=== PATIENT | female | born 1940 | race Caucasian/White ===

== ENCOUNTER 2019-07-13 12:15 | Inpatient (IN) ==
[2019-07-13] MEDS ORDERED: ASPIRIN CHEW 324 MG PO STA (12:30)
[2019-07-13] MEDS ORDERED: NITROGLYCERIN SL 0.4 MG/TAB TAB SL PRN (12:30)
[2019-07-13] MEDS ORDERED: ONDANSETRON INJ 2 MG/ML 2 ML VIAL IV STA (12:30)
[2019-07-13] MEDS ORDERED: ASPIRIN CHEW 324 MG ONE (12:34)
[2019-07-13] MEDS ORDERED: NITROGLYCERIN SL 0.4 MG/TAB TAB ONE (12:34)
[2019-07-13] MEDS ORDERED: ONDANSETRON INJ 2 MG/ML 2 ML VIAL ONE (12:34)
[2019-07-13] MEDS ORDERED: fentaNYL citrate 100 MCG/2 ML VIAL IV PRN (12:37)
[2019-07-13] MEDS ORDERED: SODIUM CHLORIDE 0.9% 1000ML 1,000 ML IV STA (12:41)
[2019-07-13] MEDS ORDERED: HEPARIN (PORCINE) 1000 UNIT/ML 10 ML (CATH LAB USE ONLY) ONE (12:43)
[2019-07-13] MEDS ORDERED: NITROGLYCERIN/D5W 100MCG/ML 20ML SYR ONE (12:44)
[2019-07-13] MEDS ORDERED: NiCARDipine HCL INJ 2.5 MG/ML 10 ML AMP ONE (12:44)
[2019-07-13] MEDS ORDERED: fentaNYL citrate 100 MCG/2 ML VIAL ONE (12:44)
[2019-07-13] MEDS ORDERED: MIDAZOLAM HCL 1 MG/ML 2ML VIAL ONE (12:44)
--- NOTE | 2019-07-13 12:53 | XRay Report ---
XR chest 1V portable CLINICAL HISTORY: Chest Pain COMPARISON STUDY: No previous studies for comparison. FINDINGS: Lung volumes are normal. Lungs are clear. There is no pneumothorax or pleural effusion. Car diac size is normal. Mediastinal contours are normal. There is no evidence for pulmonary edema. IMPRESSION: No acute cardiopulmonary findings. Electronically signed by: Rick Rainey M.D. 07/13/2019 12:52 PM
[2019-07-13 12:54] LABS: Hemoglobin 14.8 g/dL (12.0-16.0); Mean Corpuscular Hemoglobin 30.5 pg (25-34); Mean Corpuscular Hgb Conc 34.4 g/dL (32-36); Mean Corpuscular Volume 88.5 fL (80-100); Mean Platelet Volume 10.5 fL (7.4-10.4); Platelet Count 207 K/uL (130-400); RDW Coefficient of Variation 14.3 % (11.5-14.5); RDW Standard Deviation 46.8 fL (36.4-46.3); Red Blood Count 4.86 M/uL (4.2-5.4); White Blood Count 10.85 K/uL (4.8-10.8)
[2019-07-13 12:54] LABS: iSTAT Creatinine 1.3 mg/dl (0.6-1.3); iSTAT Hemoglobin 15.3 g/dl (12.0-16.0); iSTAT Ionized Calcium 1.11 mmol/l (1.12-1.32); iSTAT Potassium 4.3 mEq/L (3.3-5.0)
[2019-07-13] MEDS ORDERED: OPTIRAY 320 125ml IV PRN (12:54)
[2019-07-13 13:09] LABS: Partial Thromboplastin Ratio 0.9; Partial Thromboplastin Time 25.1 Seconds (21.0-31.0); Prothrombin Time 9.8 Seconds (9.0-12.0)
[2019-07-13 13:17] LABS: Albumin Level 3.9 gm/dl (3.4-5.0); Calcium 9.7 mg/dl (8.5-10.1); Creatinine Clr Calc Pharmacy 35.9 ml/min; Est GFR (African American) 40.8; Est GFR (Non-African American) 35.2; Potassium 3.5 mmol/L (3.5-5.1)
--- NOTE | 2019-07-13 13:18 | CT Scan Report ---
CT ANGIOGRAPHY OF THE CHEST DISSECTION PROTOCOL CLINICAL HISTORY: severe back pain, AMI on ecg COMPARISON STUDY: Chest radiograph July 13, 2019. TECHNIQUE: Before and following the IV administration of 120 mL of Optiray-320, helical axial images of the chest were obtained. Maximal intensity projections and sagittal and coronal reformats were vi ewed on an independent 3D workstation. IV contrast was administered without complication. Automated exposure control was utilized for the study. A dose lowering technique was utilized adhering to the principles of ALARA. CT DOSE: 1165.84 mGy.cm FINDINGS: The caliber of the thoracic aorta is normal. There is irregular ulcerated plaque along the lateral aspect of the aortic arch. There is no thoracic aortic dissection or intramural hematoma. Th e heart is mildly enlarged. Multiple coronary artery stents are noted. There is extensive vascular ca lcification. No pneumothorax or pleural effusion is noted. There is no consolidation. Central airways are patent. No pulmonary emboli identified. Bony thorax is unremarkable. A cyst within the upper kathia e of the left kidney is partially imaged. There are suspected left renal calculi, including a suspect ed large calculus shown on the driver license reviewing officer image. IMPRESSION: 1. No thoracic aortic dissection. No pulmonary emboli. 2. Irregular ulcerated atherosclerotic plaque of the aortic arch. 3. Cardiomegaly. Extensive coronary artery calcification. 4. Left-sided nephrolithiasis. Electronically signed by: Rick Rainey M.D. 07/13/2019 1:16 PM
[2019-07-13] MEDS ORDERED: CLOPIDOGREL BISULFATE 300 MG TAB PO STA (13:21)
[2019-07-13] MEDS ORDERED: HEPARIN SODIUM/DEXTROSE 25,000 UNITS/500 ML BAG IV SCH (13:30)
[2019-07-13 13:33] LABS: ALC (manual) 7.49 K/uL (1.2-3.4); Basophils % (manual) 0.9 %; Large Granular Lymph # (manua 5.76 K/uL; Large Granular Lymph % (manual) 53.1 %; Lymphocytes # (manual) 1.73 K/uL (1.2-3.4); Lymphocytes % (manual) 15.9 %; Monocytes # (manual) 0.77 K/uL (0.11-0.59); Monocytes % (manual) 7.1 %; RBC Morphology Unremarkable
[2019-07-13] MEDS ORDERED: ADENOSINE IV SOLN 3 MG/ML 2 ML VIAL IV ONE ×3 (13:42→14:03)
[2019-07-13 13:43] LABS: Albumin Globulin Ratio 0.8 (0.9-2); Bilirubin,Total 0.6 mg/dl (0.2-1); Globulin 4.7 gm/dl (2.5-4.0); Total Protein 8.6 gm/dl (6.4-8.2); Troponin I 0.097 ng/ml (0-0.045)
[2019-07-13] MEDS ORDERED: ATROPINE SULFATE 0.1 MG/ML 10ML SYR IV ONE (14:06)
[2019-07-13] MEDS ORDERED: MoRPHine SULFATE 2 MG/ML CARP IV PRN ×2 (14:21→15:09)
[2019-07-13] MEDS ORDERED: HydrALAZINE HCL 20 MG/ML VIAL ONE (14:31)
--- NOTE | 2019-07-13 14:34 | Cardiac Catheterization ---
Cardiac Cath Procedure Full Procedure Date July 13, 2019 Pre-Procedure Diagnosis Pre-Procedure Diagnosis: STEMI AUC Score AUC Score: 10 Post-Procedure Diagnosis Post-Procedure Diagnosis: Successful PCI Procedure(s) Performed Procedure(s) Performed: Coronary Angiography, PTCA and Drug Eluting Stent Pantograph Machine Set Up Operator Codie Barton Estimated Blood Loss Estimated Blood Loss: None Medication(s) Medication(s): Adenosine, Aspirin, Clopidogrel, Fentanyl, Heparin, Lidocaine 1% and Versed Summary of Findings 90% Ostial RCA 100% Distal RCA 70% Mid LAD 90% non-dominate circ POBA of RCA. 4.0 x 12mm ELLE to Ostial LAD Hemodynamics Rest Ao:: 220/78 Final Ao: 187/79 LV: ND Recommendations Recommendations: PCI without planned CABG Specimens Specimens: None Radiation Exposure (mGy) 2981 Contrast (mls) 210 Procedural Complication(s) None Disposition ICU I attest to the content of the Intraoperative Record and any orders documented therein. Any exceptions are noted below. 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
--- NOTE | 2019-07-13 14:40 | History & Physical Report ---
Date of Service July 13, 2019 Assessment & Plan (1) Acute ST elevation myocardial infarction (STEMI): 1. 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 Involved coronary artery: unspecified coronary artery Qualified Code(s): I21.3 - ST elevation (STEMI) myocardial infarction of unspecified site Present on Admission?: Yes History of Present Illness Chief Complaint: STEMI Primary Care Provider: NO PCP Allergies Allergy/AdvReac Type Severity Reaction Status Date / Time Penicillins Allergy Hives Unverified 07/13/19 13:08 codeine AdvReac Gastrointestinal Unverified 07/13/19 13:08 Upset prednisone AdvReac Unknown Unverified 07/13/19 13:08 Home Medications Home Medications Medication Instructions Recorded Confirmed Type clopidogrel 75 mg PO DAILY 07/13/19 07/13/19 History insulin glargine [Lantus Solostar 50 unit SUBCUT QAM 07/13/19 07/13/19 History U-100 Insulin] insulin lispro [Humalog KwikPen 1 unit SUBCUT TIDM 07/13/19 07/13/19 History Insulin] levothyroxine 175 mcg PO DAILY 07/13/19 07/13/19 History losartan 50 mg PO DAILY 07/13/19 07/13/19 History metoprolol tartrate 25 mg PO DAILY 07/13/19 07/13/19 History omeprazole 20 mg PO DAILY 07/13/19 07/13/19 History rosuvastatin 5 mg PO DAILY 07/13/19 07/13/19 History Past Med/Surg History Medical History CAD (coronary artery disease) Diabetes Hypertension MS (multiple sclerosis) Surgical History History of coronary artery stent placement Family History Other Family history non-contributory Social History Preferred Language: Malian Feels Safe at Home: Yes Review of Systems All systems reviewed & are unremarkable except as noted in HPI & below Physical Exam Constitutional: WD/WN, vitals as above Respiratory: normal respiratory effort, lungs clear to auscultation Cardiovascular: RRR, no murmur, no edema ASA Classification ASA ASA3 Results & Data Vital Signs (Past 12 Hours) Vital Signs Temp Pulse Resp BP Pulse Ox 07/13/19 13:10 79 18 100 07/13/19 13:07 74 18 212/102 H 07/13/19 13:02 79 20 100 07/13/19 12:44 20 179/100 H 100 07/13/19 12:40 21 100 07/13/19 12:32 217/115 H 100 07/13/19 12:31 99 07/13/19 12:30 100 07/13/19 12:29 76 21 234/103 H 99 07/13/19 12:27 78 19 98 07/13/19 12:22 100 07/13/19 12:21 36.7 C 125 H 28 H 100 Code Status & VTE Plan VTE Prophylaxis Plan VTE Prophylaxis will be ordered: Yes
[2019-07-13] MEDS ORDERED: GLUCOSE 40% GEL 15 GM TUBE PO PRN (15:15)
[2019-07-13] MEDS ORDERED: CARBOHYDRATES FOR HYPOGLYCEMIA PO PRN (15:15)
[2019-07-13] MEDS ORDERED: LACTATED RINGER'S 1,000 ML IV SCH (15:15)
[2019-07-13] MEDS ORDERED: DEXTROSE 50% 50 ML SYRINGE IV PRN (15:15)
[2019-07-13] MEDS ORDERED: GLUCAGON FOR INJ 1 MG VIAL IM PRN (15:15)
[2019-07-13] MEDS ORDERED: GLUCOSE 10 TABS/TUBE PO PRN (15:15)
--- NOTE | 2019-07-13 15:16 | Critical Care Consultation ---
Date of Consultation July 13, 2019 Assessment & Plan (1) Admitted to intensive care unit: Reason Critically Ill: 78-year-old female here for s/ppci with nyla for STEMI. Past medical history significant for Coronary artery disease, diabetes, hypertension, multiple sclerosis Neuro: -CAM ICU: NEGATIVE -Notify provider of cp Cardiac: Stemi Status post cardiac catheterization with findings of 90% ostial RCA occlusion, 100% distal RCA occlusion, 70% mid LAD occlusion, 90% nondominant circumflex occlusion. A drug-eluting stent was placed to the ostial left anterior descending. Patient is hypertensive in the postoperative period -Cardiology consulted following recommendations -Routine post cath care -On dual antiplatelet therapy with aspirin and clopidogrel, on losartan 50 mg daily, metoprolol 25 mg daily, and 5 mg rosuvastatin daily Respiratory: -Saturating 98% on room air GI: -Heart healthy diet RENAL/LYTES: -No significant electrolyte derangement. -Replace lytes as needed. SUSANNAH CR 1.44 -Gentle fluid hydration with lactated Ringer's @125 : - No concerns at this time. ENDO: DMII -glycemic cx placed HEME: - Stable H&H. ID: - No concerns for infection at this point. -Monitor fever curve. LINES/IV ACCESS: -PIVs intact. DVT PROPHYLAXIS: -Received intraoperative heparin and loaded with antiplatelets -Initiate DVT prophylaxis tomorrow Dispo: ICU Thank you for allowing us to be part of this patient's care. Please refer to Dr. Perea's documentation for any further recommendations. (2) Acute ST elevation myocardial infarction (STEMI): (3) History of coronary artery stent placement: (4) HTN (hypertension): (5) MS (multiple sclerosis): History of Present Illness Attending Physician: Codie Barton History of Present Illness Patient is visiting [place] but resides in [facility]. Patient follows with Dr. 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 Best, records are pending. Patient is a 78-year-old female with a past medical history significant for hx of prior mi,multiple sclerosis, diabetes, coronary artery disease, and hypertension. who presented to the emergency department today with complaints of chest pain and chest pressure. A code heart alert was called and the patient was taken to the Assistant Sales Manager see assessment and plan for findings. A drug-eluting stent was placed and the patient was transferred to the ICU for further evaluation management. On arrival to the ICU the patient was sedated although responsive and able to interact with staff. Acute concerns are present related to hypertension all questions answered. Allergies Allergy/AdvReac Type Severity Reaction Status Date / Time Penicillins Allergy Hives Unverified 07/13/19 13:08 codeine AdvReac Gastrointestinal Unverified 07/13/19 13:08 Upset prednisone AdvReac Unknown Unverified 07/13/19 13:08 Home Medications Home Medications Medication Instructions Recorded Confirmed Type clopidogrel 75 mg PO DAILY 07/13/19 07/13/19 History insulin glargine [Lantus Solostar 50 unit SUBCUT QAM 07/13/19 07/13/19 History U-100 Insulin] insulin lispro [Humalog KwikPen 1 unit SUBCUT TIDM 07/13/19 07/13/19 History Insulin] levothyroxine 175 mcg PO DAILY 07/13/19 07/13/19 History losartan 50 mg PO DAILY 07/13/19 07/13/19 History metoprolol tartrate 25 mg PO DAILY 07/13/19 07/13/19 History omeprazole 20 mg PO DAILY 07/13/19 07/13/19 History rosuvastatin 5 mg PO DAILY 07/13/19 07/13/19 History Patient History Medical History (Updated 07/13/19 @ 16:34 by Ericka Quiñonez PA-C) CAD (coronary artery disease) Diabetes Diabetes mellitus, type II GERD (gastroesophageal reflux disease) Hypertension MS (multiple sclerosis) Surgical History History of coronary artery stent placement History of hysterectomy S/P appendectomy S/P cholecystectomy Family History (Updated 07/13/19 @ 16:30 by Ericka Quiñonez PA-C) Other Heart disease Social History Preferred Language: Armenian Communication Ability: Effective Communication Ability Comment: currently sleeping after cardiac catheterization Vice President Of Talent Acquisition Required: No Beliefs That Will Affect Care: None Current Living Situation: Spouse Other Information That Helps Us Care for You: No Feels Safe at Home: Yes Safety Concerns: Feels Safe At This Time Smoking Status: Never smoker Do You Dip or Chew Tobacco: No ; Second Hand Exposure: No ; Tobacco Cessation Education Requested by Patient: No Hx Alcohol Use: No Hx Substance Use: No Physical Exam Physical Exam: General: Sedated female no acute distress HEENT: Normocephalic atraumatic Neck: Normal to visual inspection Cardiac: Regular rate and rhythm, I did not appreciate any significant murmurs rubs or gallops, normal S1 normal S2, negative significant pedal edema Respiratory: Clear to auscultation bilaterally without significant wheezes, rales, rhonchi GI: Soft, nontender, nondistended MSK: Moves extremities Skin: No concerns Neuro: Sedated Psych: Sedated Results & Data Vital Signs (Past 12 Hours) Vital Signs Temp Pulse Resp BP Pulse Ox 07/13/19 13:10 79 18 100 07/13/19 13:07 74 18 212/102 H 07/13/19 13:02 79 20 100 07/13/19 12:44 20 179/100 H 100 07/13/19 12:40 21 100 07/13/19 12:32 217/115 H 100 07/13/19 12:31 99 07/13/19 12:30 100 07/13/19 12:29 76 21 234/103 H 99 07/13/19 12:27 78 19 98 07/13/19 12:22 100 07/13/19 12:21 36.7 C 125 H 28 H 100 Laboratory Results 07/13/19 07/13/19 07/13/19 Range/Units 12:38 12:34 12:34 WBC (4.8-10.8) K/uL RBC (4.2-5.4) M/uL Hgb (12.0-16.0) g/dL POC Hgb 15.3 (12.0-16.0) g/dl Hct (37-47) % POC Hct 45 (37-47) % MCV (80-100) fL MCH (25-34) pg MCHC (32-36) g/dL RDW Std Deviation (36.4-46.3) fL RDW Coeff of Cindy (11.5-14.5) % Plt Count (130-400) K/uL MPV (7.4-10.4) fL Neutrophils % (Manual) % Lymphocytes % (Manual) % Monocytes % (Manual) % Basophils % (Manual) % Neutrophils # (Manual) (1.4-6.5) K/uL Total Absolute Neuts (1.4-6.5) K/uL Lymphocytes # (Manual) (1.2-3.4) K/uL Total Abs Lymphocytes (1.2-3.4) K/uL Monocytes # (Manual) (0.11-0.59) K/uL Basophils # (Manual) (0-0.2) K/uL Large Granular Lymphs % # Lrg Granular Lymphs K/uL Blood Smear Review RBC Morphology PT 9.8 (9.0-12.0) Seconds INR 1.0 (0.9-1.1) APTT 25.1 (21.0-31.0) Seconds PTT Ratio 0.9 POC Sodium 142 (135-144) mEq/L Sodium 140 (136-145) mmol/L POC Potassium 4.3 (3.3-5.0) mEq/L Potassium 3.5 (3.5-5.1) mmol/L POC Chloride 110 (101-112) mEq/L Chloride 108 H (98-107) mmol/L Carbon Dioxide 25 (21-32) mmol/L POC Total CO2 23 L (24-31) mEq/l Anion Gap 7.0 (3-11) POC Anion Gap 14.0 L (16-25) mmol/L POC BUN 35 H (7-18) mg/dl BUN 30 H (7-18) mg/dl Creatinine 1.44 H (0.6-1.2) mg/dl POC Creatinine 1.3 (0.6-1.3) mg/dl Est Cr Clr Drug Dosing 35.9 ml/min Est GFR ( Amer) 40.8 Est GFR (Non-Af Amer) 35.2 BUN/Creatinine Ratio 21.0 H (10-20) Glucose 118 H (70-99) mg/dl POC Glucose (other) 115 H (70-99) mg/dl Calcium 9.7 (8.5-10.1) mg/dl POC Ioniz Calcium Sharon 1.11 L (1.12-1.32) mmol/l Total Bilirubin 0.6 (0.2-1) mg/dl AST 25 (15-37) U/L ALT 28 (12-78) U/L Alkaline Phosphatase 100 (45-117) U/L Troponin I 0.097 H* (0-0.045) ng/ml Total Protein 8.6 H (6.4-8.2) gm/dl Albumin 3.9 (3.4-5.0) gm/dl Globulin 4.7 H (2.5-4.0) gm/dl Albumin/Globulin Ratio 0.8 L (0.9-2) Lipase 158 (73-393) U/L 07/13/19 Range/Units 12:34 WBC 10.85 H (4.8-10.8) K/uL RBC 4.86 (4.2-5.4) M/uL Hgb 14.8 (12.0-16.0) g/dL POC Hgb (12.0-16.0) g/dl Hct 43.0 (37-47) % POC Hct (37-47) % MCV 88.5 (80-100) fL MCH 30.5 (25-34) pg MCHC 34.4 (32-36) g/dL RDW Std Deviation 46.8 H (36.4-46.3) fL RDW Coeff of Cindy 14.3 (11.5-14.5) % Plt Count 207 (130-400) K/uL MPV 10.5 H (7.4-10.4) fL Neutrophils % (Manual) 23.0 % Lymphocytes % (Manual) 15.9 % Monocytes % (Manual) 7.1 % Basophils % (Manual) 0.9 % Neutrophils # (Manual) 2.50 (1.4-6.5) K/uL Total Absolute Neuts 2.50 (1.4-6.5) K/uL Lymphocytes # (Manual) 1.73 (1.2-3.4) K/uL Total Abs Lymphocytes 7.49 H (1.2-3.4) K/uL Monocytes # (Manual) 0.77 H (0.11-0.59) K/uL Basophils # (Manual) 0.10 (0-0.2) K/uL Large Granular Lymphs 53.1 % # Lrg Granular Lymphs 5.76 K/uL Blood Smear Review Pending RBC Morphology Unremarkable PT (9.0-12.0) Seconds INR (0.9-1.1) APTT (21.0-31.0) Seconds PTT Ratio POC Sodium (135-144) mEq/L Sodium (136-145) mmol/L POC Potassium (3.3-5.0) mEq/L Potassium (3.5-5.1) mmol/L POC Chloride (101-112) mEq/L Chloride (98-107) mmol/L Carbon Dioxide (21-32) mmol/L POC Total CO2 (24-31) mEq/l Anion Gap (3-11) POC Anion Gap (16-25) mmol/L POC BUN (7-18) mg/dl BUN (7-18) mg/dl Creatinine (0.6-1.2) mg/dl POC Creatinine (0.6-1.3) mg/dl Est Cr Clr Drug Dosing ml/min Est GFR ( Amer) Est GFR (Non-Af Amer) BUN/Creatinine Ratio (10-20) Glucose (70-99) mg/dl POC Glucose (other) (70-99) mg/dl Calcium (8.5-10.1) mg/dl POC Ioniz Calcium Sharon (1.12-1.32) mmol/l Total Bilirubin (0.2-1) mg/dl AST (15-37) U/L ALT (12-78) U/L Alkaline Phosphatase (45-117) U/L Troponin I (0-0.045) ng/ml Total Protein (6.4-8.2) gm/dl Albumin (3.4-5.0) gm/dl Globulin (2.5-4.0) gm/dl Albumin/Globulin Ratio (0.9-2) Lipase (73-393) U/L Medications Administered Current Inpatient Medications Aspirin (Ecotrin) 325 mg PO QAM [facility] Stop: 08/13/19 08:59 Clopidogrel Bisulfate (Plavix) 75 mg PO QAM [facility] Stop: 08/13/19 08:59 Clopidogrel Bisulfate (Plavix) 75 mg PO DAILY [facility] Stop: 08/13/19 08:59 Fentanyl Citrate (Fentanyl Citrate) 50 mcg IV Q15M PRN PRN Reason: Pain Stop: 07/27/19 12:36 Last Admin: 07/13/19 12:41 Dose: 50 mcg Documented by: Sodium Chloride (Nss 1000ml) 1,000 mls @ 125 mls/hr IV .Q8H STA Stop: 07/13/19 20:40 Last Admin: 07/13/19 12:40 Dose: 125 mls/hr Documented by: Heparin Sodium/Dextrose (Heparin Sodium/Dextrose) 25,000 units in 500 mls @ 0.02 mls/hr IV .Q24H [facility]; Protocol Stop: 08/12/19 13:29 Insulin Glargine (Lantus Solostar Pen) 50 units SQ QAM JACKIE Stop: 08/13/19 08:59 Ioversol (Optiray 320 125ml) 120 ml IV ONCE PRN PRN Reason: Interaction Checking Stop: 07/17/19 12:53 Last Admin: 07/13/19 12:54 Dose: 120 ml Documented by: Levothyroxine Sodium (Synthroid) 175 mcg PO DAILY [facility] Stop: 08/13/19 08:59 Losartan Potassium (Cozaar) 50 mg PO DAILY [facility] Stop: 08/13/19 08:59 Metoprolol Tartrate (Lopressor) 25 mg PO DAILY [facility] Stop: 08/13/19 08:59 Morphine Sulfate (Morphine Sulfate) 1 mg IV Q5M PRN PRN Reason: moderate to severe pain Stop: 07/27/19 14:20 Nitroglycerin (Nitrostat) 0.4 mg SL UD PRN PRN Reason: Chest Pain Stop: 08/12/19 12:29 Last Admin: 07/13/19 13:07 Dose: 0.4 mg Documented by: Non-Formulary Medication (Insulin Lispro [Humalog Kwikpen Insulin]) 1 units SQ TIDM [facility] Stop: 08/12/19 16:59 Non-Formulary Medication (Omeprazole) 20 mg PO DAILY [facility] Stop: 08/13/19 08:59 Rosuvastatin Calcium (Crestor) 5 mg PO DAILY [facility] Stop: 08/13/19 08:59 Resident Activity Tracking Resident Involvement: Resident Care Provided Care Provided: Adult Hospital Medicine (ICU) (1) Acute ST elevation myocardial infarction (STEMI) Involved coronary artery: unspecified coronary artery Qualified Code(s): I21.3 - ST elevation (STEMI) myocardial infarction of unspecified site
[2019-07-13] MEDS ORDERED: PHARMACY GLYCEMIC MGMT CONSULT PRN (15:27)
--- NOTE | 2019-07-13 15:55 | History & Physical Report ---
Date of Service July 13, 2019 Assessment & Plan (1) Acute ST elevation myocardial infarction (STEMI): (2) History of coronary artery stent placement: This is a 78-year-old female with a PMH of coronary artery disease, HTN, HLD, GERD, history of Chavez's esophagus and stable MS who presented to ED this morning with a STEMI and is s/p ELLE. -Found to have STEMI in ED, underwent cardiac cath with ELLE to ostial LAD by Dr. Barton -History of CAD with cardiac cath in the past (requested records). Follows with Dr. Best of [facility] -Plavix and aspirin ordered. Continue home Lopressor and statin -Routine cardiology consult placed -Mgmt per ICU (3) HTN (hypertension): Elevated post-operatively, now improved to 162/80 -Continue home losartan, lopressor (4) Diabetes mellitus, type II: -Hold home agents -Basal/bolus insulin while in patient per protocol -Glycemic consult placed -BSG AC HS (5) MS (multiple sclerosis): Stable, not on medication (6) GERD (gastroesophageal reflux disease): Continue PPI DVT ppx: Received intraoperative heparin and loaded with antiplatelets. Initiate DVT prophylaxis tomorrow, per ICU Code status: FULL per discussion with family. Need to clarify with patient more arousable PCP: Gianluca Dispo: Admitted to ICU. Discharge planning ordered. Patient seen in collaboration with Dr. Christensen. Please see addendum. History of Present Illness Chief Complaint: Chest pain Primary Care Provider: NO PCP This is a 78-year-old female with a PMH of coronary artery disease, HTN, HLD, GERD, history of Chavez's esophagus and stable MS who presented to ED this morning with chest pain. Patient is visiting [place] but resides in [place], [place]. Upon arrival to ED, a heart alert was called and the patient was taken to the Flight/Transport Nurse. A drug-eluting stent was placed to ostial LAD and patient was transferred to the ICU for further management. Post catheterization, patient is feeling nauseated and had 1 bout of emesis. History primarily obtained from family at bedside. Patient follows with Dr. Hough of [facility] as well as optical lathe operator Dr. Best. Has history of a cardiac catheterization in the past but family does not know any more information about it. Records have been requested. Takes Plavix every day but does not take aspirin due to history of Chavez's esophagus. Family history of CAD in patient's mom. Endorses nausea and vomiting. No chest pain or SOB. Unable to obtain full ROS due to somnolence post-procedure. Allergies Allergy/AdvReac Type Severity Reaction Status Date / Time Penicillins Allergy Hives Unverified 07/13/19 13:08 codeine AdvReac Gastrointestinal Unverified 07/13/19 13:08 Upset prednisone AdvReac Unknown Unverified 07/13/19 13:08 Home Medications Home Medications Medication Instructions Recorded Confirmed Type clopidogrel 75 mg PO DAILY 07/13/19 07/13/19 History insulin glargine [Lantus Solostar 50 unit SUBCUT QAM 07/13/19 07/13/19 History U-100 Insulin] insulin lispro [Humalog KwikPen 1 unit SUBCUT TIDM 07/13/19 07/13/19 History Insulin] levothyroxine 175 mcg PO DAILY 07/13/19 07/13/19 History losartan 50 mg PO DAILY 07/13/19 07/13/19 History metoprolol tartrate 25 mg PO DAILY 07/13/19 07/13/19 History omeprazole 20 mg PO DAILY 07/13/19 07/13/19 History rosuvastatin 5 mg PO DAILY 07/13/19 07/13/19 History Past Med/Surg History Medical History (Updated 07/13/19 @ 16:34 by Ericka Quiñonez PA-C) CAD (coronary artery disease) Diabetes Diabetes mellitus, type II GERD (gastroesophageal reflux disease) Hypertension MS (multiple sclerosis) Surgical History History of coronary artery stent placement History of hysterectomy S/P appendectomy S/P cholecystectomy Family History (Updated 07/13/19 @ 16:30 by Ericka Quiñonez PA-C) Other Heart disease Social History Preferred Language: Ukrainian Communication Ability: Effective Communication Ability Comment: currently sleeping after cardiac catheterization [employer] Required: No Beliefs That Will Affect Care: None Current Living Situation: Spouse Other Information That Helps Us Care for You: No Feels Safe at Home: Yes Safety Concerns: Feels Safe At This Time Smoking Status: Never smoker Do You Dip or Chew Tobacco: No ; Second Hand Exposure: No ; Tobacco Cessation Education Requested by Patient: No Hx Alcohol Use: No Hx Substance Use: No Review of Systems Review of Systems: At least ten systems reviewed and negative except as noted in the HPI. Physical Exam Physical Exam: General Appearance: WD/WN, vitals as above, NAD, lying in bed, somnolent but responsive Head: normocephalic, atraumatic Eyes: normal inspection, PERRL, conjunctivae normal, anicteric sclerae ENT: external ear and nose normal, oropharynx normal Neck: trachea midline, no thyromegaly normal visual inspection Respiratory: normal respiratory effort, lungs clear to auscultation, no wheeze, rales, rhonchi. Normal insp/exp effort, no accessory muscle use Cardiovascular: regular rate, rhythm, no murmur appreciated, normal peripheral pulses. Vessels: no JVD or carotid bruit Chest: normal inspection of chest Abdomen/GI: normal bowel sounds, soft, nontender, no hepatosplenomegaly Extremities/Musculoskelatal: no cyanosis or clubbing, extremities motor strength 5/5 Neurologic: PERRL, EOMI, accommodation nl, no face palsy, no dysarthria CN's II-XI intact bilaterally and moves all extremities Psychiatric: A+Ox3, euthymic affect Skin: no rashes, normal color, warm/dry Results & Data Vital Signs (Past 12 Hours) Vital Signs Temp Pulse Pulse Resp BP BP Pulse Ox 07/13/19 15:30 74 11 L 181/89 H 07/13/19 15:20 70 07/13/19 15:15 70 12 164/68 H 98 07/13/19 15:00 70 12 177/65 H 98 07/13/19 14:45 36.1 C L 75 12 164/71 H 98 07/13/19 13:10 79 18 100 07/13/19 13:07 74 18 212/102 H 07/13/19 13:02 79 20 100 07/13/19 12:44 20 179/100 H 100 07/13/19 12:40 21 100 07/13/19 12:32 217/115 H 100 07/13/19 12:31 99 07/13/19 12:30 100 07/13/19 12:29 76 21 234/103 H 99 12/14/19 12:27 78 19 98 07/13/19 12:22 100 07/13/19 12:21 36.7 C 125 H 28 H 100 Laboratory Results Short CBC 07/13/19 Range/Units 12:34 WBC 10.85 H (4.8-10.8) K/uL Hgb 14.8 (12.0-16.0) g/dL Hct 43.0 (37-47) % Plt Count 207 (130-400) K/uL BMP 07/13/19 12:34 Sodium 140 Potassium 3.5 Chloride 108 H Carbon Dioxide 25 BUN 30 H Creatinine 1.44 H Glucose 118 H Calcium 9.7 Cardiac Enzymes 07/13/19 Range/Units 12:34 Troponin I 0.097 H* (0-0.045) ng/ml Liver Function 07/13/19 Range/Units 12:34 Total Bilirubin 0.6 (0.2-1) mg/dl AST 25 (15-37) U/L ALT 28 (12-78) U/L Alkaline Phosphatase 100 (45-117) U/L Albumin 3.9 (3.4-5.0) gm/dl Diagnostic Findings CXR: IMPRESSION: No acute cardiopulmonary findings. Chest CTA: IMPRESSION: 1. No thoracic aortic dissection. No pulmonary emboli. 2. Irregular ulcerated atherosclerotic plaque of the aortic arch. 3. Cardiomegaly. Extensive coronary artery calcification. 4. Left-sided nephrolithiasis. ECG Findings: + ST elevation Code Status & VTE Plan VTE Prophylaxis Plan VTE Prophylaxis will be ordered: Yes Supervising Physician Co-Signing Physician Notes HISTORY: Record reviewed. Patient interviewed and examined. Care coordinated with Ericka Quiñonez PA-C. Please refer to her documentation for complete history. Briefly, 78 YO F from [place] with history of ischemic heart disease and other problems. Presented with inferior STEMI. 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 Cardiac cath revealed multiple lesions; ELLE placed in ostial LAD + PTCA of RCA lesion. Admitted to ICU after the procedure. EXAM: General- somnolent, nauseated Lungs- clear to auscultation; no respiratory distress Cardiovascular- RRR; no gallop; no JVD; no pretibial edema Abdomen- + bowel sounds, soft, nontender Extremities- no cyanosis; no calf tenderness Neuro- somnolent Skin- warm & dry DATA: Hgb 14.8, WBC 10,850, plts 207,000. Troponin 0.097. Serum creatinine 1.44. Random glucose 118. Total protein 8.6, alb 3.9, globulin 4.7. albumin/globulin ratio 0.8. Other lab studies as noted. Chest x-ray reviewed by the undersigned and formally interpreted by Radiology. No infiltrates, effusions, CHF. Calcification of aortic arch noted. CTA chest per Radiology negative for pulmonary emboli or thoracic aortic dissection. Irregular ulcerated atherosclerotic plaque of the aortic arch noted. Extensive coronary artery calcifications noted. Renal calculi incidentally noted. EKG performed at 1222 reviewed and demonstrated baseline artifact, normal sinus rhythm at 80 / minute, inferior ST elevation, ST depression and T wave inversion in the lateral limb leads.. EKG performed at 1446 reviewed and demonstrated normal sinus rhythm at 70/minute, 2-[address] elevation in inferior leads, ST depression and biphasic T waves in lateral limb leads, T wave flattening in V4 through V6. ASSESSMENT AND PLAN: Acute inferior STEMI. Taken to Flight/Transport Nurse for diagnostic and interventional catheterization. PTCA of RCA and PCI of LAD with drug-eluting stent performed. Aspirin, clopidogrel, metoprolol, statin ordered. Further management per Cardiology. Serum creatinine at time of admission 1.44. Patient received dye loads with CTA and cardiac catheterization. Monitor renal function post procedure. Records from [facility] in [place] requested for more background information. Please refer to ADELA Quiñonez's documentation for discussion of other issues. (1) Acute ST elevation myocardial infarction (STEMI) Involved coronary artery: unspecified coronary artery Qualified Code(s): I21.3 - ST elevation (STEMI) myocardial infarction of unspecified site
[2019-07-13] MEDS ORDERED: INSULIN GLARGINE SOLOSTAR 100 UNITS/ML 3 ML PEN SQ SCH (16:00)
[2019-07-13] MEDS: ONDANSETRON INJ 2 MG/ML 2 ML VIAL IV PRN ×2 (16:38→22:48)
[2019-07-13] MEDS: INSULIN ASPART 100 UNITS/ML 3 ML PEN SC SCH ×2 (16:51→21:34)
--- NOTE | 2019-07-13 17:49 | Emergency Department Note ---
Entered by Kaiser Narvaez acting as a scribe for Elias Coates MD ED Provider Note CHIEF COMPLAINT: Chest pain HISTORY OF PRESENT ILLNESS: The patient is a 78 year old female who presents to the Emergency Room with complaints of intermittent chest pain that started 4 days ago but became acutely worse this morning about 1.5 hours ago. The patient states she initially attributed the pain to something musculoskeletal due to recent exercise but this morning she has a burning pain that reminded her of past episodes of needing to have stents placed. The patient has a history of CAD and has 13 stents with her last stent placement being about 10 years ago. The patient adds that the pain radiates into the center of her back between her shoulder blades. The patient is on Plavix. Per the the patient has a history of diabetes, CAD, GERD, and MS. Pt denies LOC, headache, fevers, chills, diaphoresis, visual changes, neck pain, breathing difficulties, nausea, vomiting, abdominal pain, melena, hematochezia, urinary symptoms, numbness, weakness, lymphadenopathy, rash, or other complaints. REVIEW OF SYSTEMS: See HPI for pertinent positives and negatives. A total of ten systems were reviewed and were otherwise negative. PMHx/PSHx: CAD, Coronary stent placement (x13), DM, MS, GERD SOCIAL HISTORY: Patient lives at home. PHYSICAL EXAM: GENERAL: Awake, alert, uncomfortable-appearing, in moderate distress HENT: Normocephalic, atraumatic. Oropharynx unremarkable. EYES: Normal conjunctiva. Sclera non-icteric. NECK: Inspection normal. Non-tender. Supple. No nuchal rigidity. FROM. No masses. RESPIRATORY: Clear to auscultation. No wheezes. No rales. Normal respiratory effort. CARDIAC: Normal rate. Normal rhythm. No murmurs. No rubs. Extremities warm and well perfused. Pulses equal. No JVD. GI: Soft, non-distended. No tenderness to palpation. No rebound or guarding. No masses. RECTAL: Deferred. MUSCULOSKELETAL: Atraumatic. Chest examination reveals no tenderness. The back is symmetrical on inspection without obvious abnormality. There is no CVA tenderness to palpation. No joint edema. LOWER EXTREMITIES: Calves are equal size bilaterally and non-tender. No edema. No discoloration. NEURO: Normal sensorium. No sensory or motor deficits noted. SKIN: No rash or jaundice noted. EMERGENCY DEPARTMENT COURSE: 1228: Past medical records reviewed. The patient was evaluated in room B04B, and a complete history and physical examination were performed. A heart alert was immediately called. The patient's EMR showed her EKG did not have any ST elevation on 07/30/12 1231: I alerted the heart alert team about the patient's case. 1234: I spoke to Dr. Silver - Cardiology at the patient's bedside and he will be bringing the patient to the medical laboratory technologist as long as her CT is normal. 1243: The patient's I-STAT was unremarkable so the patient will go to CT scan, and if normal, he will be brought to the medical laboratory technologist. 1307: I reevaluated the patient after CT scan and her pain has improved. She did receive another dose of pain medication. I updated the patient and on CT results. The patient is being brought to the medical laboratory technologist. MEDICAL DECISION MAKING: B4 Prior records/ancillary studies obtained from her outside hospital. Nursing notes reviewed and agree them. Additional history obtained from the the patient's history was concerning for cardiac history and severe upper back pain. Differential diagnosis: Etiologies such as cardiac ischemia, aortic dissection, pulmonary embolism, esophageal rupture, pneumonia, pneumothorax, musculoskeletal, infections, gastr ointestinal, as well as others were entertained. Physical examination: Patient was acutely ill. Physical exam is as above. ER treatment provided: Asprin NTG 0.4mg SL IVP Fentanyl times multiple doses On reassessment the patient felt better. Heparin and Plavix were ordered after CT imaging however not given secondary to the patient was rushed emergently to the catheterization suite once aortic dissection was ruled out. Diagnostic interpretation: The electrocardiogram was significant for an acute myocardial infarction. The labs revealed normal chemistries by i-STAT. The following imaging studies were performed and reviewed by me: Chest x-ray as above. No evidence of widened mediastinum. The patient is having an acute myocardial infarction. The heart alert was initiated. Due to the patient's severe hypertension and pain in her back there was concerns about aortic dissection. A CT was performed. There was no dissection however the patient does have coronary disease present as well as an ulcerative plaque on the aortic arch. Consultation: A consultation was placed with interventional cardiology. Dr. Silver promptly arrived in the ER and evaluated the patient and agreed with the assessment of an AMI. The patient was taken emergently to the catheterization laboratory for cardiac intervention. CRITICAL CARE: I have personally spent greater than 30 minutes of critical care time in the direct management of this patient. This includes bedside care, interpretation of diagnostic studies, and testing, discussion with consultants, patient, and family members, and other required patient management activities. This 30 minutes is in excess of all separately billable procedures. IMPRESSION: Acute STEMI PLAN: Admitted as an inpatient The scribe's documentation has been prepared under my direction and personally reviewed by me in its entirety. I confirm that the note above accurately reflects all work, treatment, procedures, and medical decision making performed by me. Impression & Plan Acute ST elevation myocardial infarction (STEMI) Past Med/Surg History Medical History (Updated 07/13/19 @ 16:34 by Ericka Quiñonez PA-C) CAD (coronary artery disease) Diabetes Diabetes mellitus, type II GERD (gastroesophageal reflux disease) Hypertension MS (multiple sclerosis) Surgical History History of coronary artery stent placement History of hysterectomy S/P appendectomy S/P cholecystectomy Family History (Updated 07/13/19 @ 16:30 by Ericka Quiñonez PA-C) Other Heart disease Social History Preferred Language: Dutch Communication Ability: Effective Communication Ability Comment: currently sleeping after cardiac catheterization Life Insurance Specialist Required: No Beliefs That Will Affect Care: None Current Living Situation: Spouse Other Information That Helps Us Care for You: No Feels Safe at Home: Yes Safety Concerns: Feels Safe At This Time Smoking Status: Never smoker Do You Dip or Chew Tobacco: No ; Second Hand Exposure: No ; Tobacco Cessation Education Requested by Patient: No Hx Alcohol Use: No Hx Substance Use: No Results & Data Vital Signs Vital Signs - 24 hr 07/13/19 12:21 07/13/19 12:22 07/13/19 12:27 Temperature 36.7 C Temperature Source Oral Pulse Rate 125 H 78 Pulse Rate from SpO2 Sensor 77 Respiratory Rate 28 H 19 Respiratory Effort / Characteristics Non-Labored Spontaneous Blood Pressure Blood Pressure Mean Blood Pressure Position Lying Pulse Oximetry 100 100 98 Oxygen Delivery Method Room Air Room Air Oxygen Flow Rate Sepsis Recent Fever Within 48 Hours No Sepsis New/Unexplained Change in Mental Status No Sepsis Action Taken by Nursing No Action Required Oxygen Flow Rate - Titration 07/13/19 12:29 07/13/19 12:30 07/13/19 12:31 Temperature Temperature Source Pulse Rate 76 Pulse Rate from SpO2 Sensor 78 77 Respiratory Rate 21 Respiratory Effort / Characteristics Blood Pressure 234/103 H Blood Pressure Mean 135 Blood Pressure Position Pulse Oximetry 99 100 99 Oxygen Delivery Method Room Air Nasal Cannula Nasal Cannula Oxygen Flow Rate 100 2 Sepsis Recent Fever Within 48 Hours Sepsis New/Unexplained Change in Mental Status Sepsis Action Taken by Nursing Oxygen Flow Rate - Titration 2 07/13/19 12:32 07/13/19 12:40 07/13/19 12:44 Temperature Temperature Source Pulse Rate Pulse Rate from SpO2 Sensor 78 85 89 Respiratory Rate 21 20 Respiratory Effort / Characteristics Blood Pressure 217/115 H 179/100 H Blood Pressure Mean 163 119 Blood Pressure Position Pulse Oximetry 100 100 100 Oxygen Delivery Method Oxygen Flow Rate 2 2 2 Sepsis Recent Fever Within 48 Hours Sepsis New/Unexplained Change in Mental Status Sepsis Action Taken by Nursing Oxygen Flow Rate - Titration 07/13/19 13:02 07/13/19 13:07 07/13/19 13:10 Temperature Temperature Source Pulse Rate 79 74 79 Pulse Rate from SpO2 Sensor 83 84 78 Respiratory Rate 20 18 18 Respiratory Effort / Characteristics Blood Pressure 212/102 H Blood Pressure Mean 142 Blood Pressure Position Pulse Oximetry 100 100 Oxygen Delivery Method Oxygen Flow Rate 2 2 Sepsis Recent Fever Within 48 Hours Sepsis New/Unexplained Change in Mental Status Sepsis Action Taken by Nursing Oxygen Flow Rate - Titration 07/13/19 13:16 Temperature Temperature Source Pulse Rate Pulse Rate from SpO2 Sensor Respiratory Rate Respiratory Effort / Characteristics Blood Pressure Blood Pressure Mean Blood Pressure Position Pulse Oximetry Oxygen Delivery Method Nasal Cannula Oxygen Flow Rate 2 Sepsis Recent Fever Within 48 Hours Sepsis New/Unexplained Change in Mental Status Sepsis Action Taken by Nursing Oxygen Flow Rate - Titration Home Medications Current Medication List: was personally reviewed by me Laboratory Data Attestation: I reviewed the patient's lab results. Result diagrams: 07/13/19 12:34 07/13/19 12:34 Lab Results 07/13/19 07/13/19 07/13/19 Range/Units 12:34 12:34 12:34 WBC 10.85 H (4.8-10.8) K/uL RBC 4.86 (4.2-5.4) M/uL Hgb 14.8 (12.0-16.0) g/dL POC Hgb (12.0-16.0) g/dl Hct 43.0 (37-47) % POC Hct (37-47) % MCV 88.5 (80-100) fL MCH 30.5 (25-34) pg MCHC 34.4 (32-36) g/dL RDW Std Deviation 46.8 H (36.4-46.3) fL RDW Coeff of Cindy 14.3 (11.5-14.5) % Plt Count 207 (130-400) K/uL MPV 10.5 H (7.4-10.4) fL Neutrophils % (Manual) 23.0 % Lymphocytes % (Manual) 15.9 % Monocytes % (Manual) 7.1 % Basophils % (Manual) 0.9 % Neutrophils # (Manual) 2.50 (1.4-6.5) K/uL Total Absolute Neuts 2.50 (1.4-6.5) K/uL Lymphocytes # (Manual) 1.73 (1.2-3.4) K/uL Total Abs Lymphocytes 7.49 H (1.2-3.4) K/uL Monocytes # (Manual) 0.77 H (0.11-0.59) K/uL Basophils # (Manual) 0.10 (0-0.2) K/uL Large Granular Lymphs 53.1 % # Lrg Granular Lymphs 5.76 K/uL RBC Morphology Unremarkable PT 9.8 (9.0-12.0) Seconds INR 1.0 (0.9-1.1) APTT 25.1 (21.0-31.0) Seconds PTT Ratio 0.9 POC Sodium (135-144) mEq/L Sodium 140 (136-145) mmol/L POC Potassium (3.3-5.0) mEq/L Potassium 3.5 (3.5-5.1) mmol/L POC Chloride (101-112) mEq/L Chloride 108 H (98-107) mmol/L Carbon Dioxide 25 (21-32) mmol/L POC Total CO2 (24-31) mEq/l Anion Gap 7.0 (3-11) POC Anion Gap (16-25) mmol/L POC BUN (7-18) mg/dl BUN 30 H (7-18) mg/dl Creatinine 1.44 H (0.6-1.2) mg/dl POC Creatinine (0.6-1.3) mg/dl Est Cr Clr Drug Dosing 35.9 ml/min Est GFR ( Amer) 40.8 Est GFR (Non-Af Amer) 35.2 BUN/Creatinine Ratio 21.0 H (10-20) Glucose 118 H (70-99) mg/dl POC Glucose (other) (70-99) mg/dl Calcium 9.7 (8.5-10.1) mg/dl POC Ioniz Calcium Sharon (1.12-1.32) mmol/l Total Bilirubin 0.6 (0.2-1) mg/dl AST 25 (15-37) U/L ALT 28 (12-78) U/L Alkaline Phosphatase 100 (45-117) U/L Troponin I 0.097 H* (0-0.045) ng/ml Total Protein 8.6 H (6.4-8.2) gm/dl Albumin 3.9 (3.4-5.0) gm/dl Globulin 4.7 H (2.5-4.0) gm/dl Albumin/Globulin Ratio 0.8 L (0.9-2) Lipase 158 (73-393) U/L // Range/Units 12:38 WBC (4.8-10.8) K/uL RBC (4.2-5.4) M/uL Hgb (12.0-16.0) g/dL POC Hgb 15.3 (12.0-16.0) g/dl Hct (37-47) % POC Hct 45 (37-47) % MCV (80-100) fL MCH (25-34) pg MCHC (32-36) g/dL RDW Std Deviation (36.4-46.3) fL RDW Coeff of Cindy (11.5-14.5) % Plt Count (130-400) K/uL MPV (7.4-10.4) fL Neutrophils % (Manual) % Lymphocytes % (Manual) % Monocytes % (Manual) % Basophils % (Manual) % Neutrophils # (Manual) (1.4-6.5) K/uL Total Absolute Neuts (1.4-6.5) K/uL Lymphocytes # (Manual) (1.2-3.4) K/uL Total Abs Lymphocytes (1.2-3.4) K/uL Monocytes # (Manual) (0.11-0.59) K/uL Basophils # (Manual) (0-0.2) K/uL Large Granular Lymphs % # Lrg Granular Lymphs K/uL RBC Morphology PT (9.0-12.0) Seconds INR (0.9-1.1) APTT (21.0-31.0) Seconds PTT Ratio POC Sodium 142 (135-144) mEq/L Sodium (136-145) mmol/L POC Potassium 4.3 (3.3-5.0) mEq/L Potassium (3.5-5.1) mmol/L POC Chloride 110 (101-112) mEq/L Chloride (98-107) mmol/L Carbon Dioxide (21-32) mmol/L POC Total CO2 23 L (24-31) mEq/l Anion Gap (3-11) POC Anion Gap 14.0 L (16-25) mmol/L POC BUN 35 H (7-18) mg/dl BUN (7-18) mg/dl Creatinine (0.6-1.2) mg/dl POC Creatinine 1.3 (0.6-1.3) mg/dl Est Cr Clr Drug Dosing ml/min Est GFR ( Amer) Est GFR (Non-Af Amer) BUN/Creatinine Ratio (10-20) Glucose (70-99) mg/dl POC Glucose (other) 115 H (70-99) mg/dl Calcium (8.5-10.1) mg/dl POC Ioniz Calcium Sharon 1.11 L (1.12-1.32) mmol/l Total Bilirubin (0.2-1) mg/dl AST (15-37) U/L ALT (12-78) U/L Alkaline Phosphatase (45-117) U/L Troponin I (0-0.045) ng/ml Total Protein (6.4-8.2) gm/dl Albumin (3.4-5.0) gm/dl Globulin (2.5-4.0) gm/dl Albumin/Globulin Ratio (0.9-2) Lipase (73-393) U/L Administered Medications Fentanyl Citrate (Fentanyl Citrate) 50 mcg IV Q15M PRN PRN Reason: Pain Stop: 07/27/19 12:36 Last Admin: 07/13/19 12:41 Dose: 50 mcg Documented by: [id number] Lactated Ringer's (Lr) 1,000 mls @ 125 mls/hr IV .Q8H JACKIE Stop: 07/14/19 15:14 Last Admin: 07/13/19 15:14 Dose: 125 mls/hr Documented by: [id number] Insulin Aspart (Novolog Flexpen) 0 units SC ACHS JACKIE; Protocol Stop: 08/12/19 16:29 Last Admin: 07/13/19 16:51 Dose: 2 units Documented by: [id number] Cosigned by: [id number] Insulin Glargine (Lantus Solostar Pen) 25 units SQ 1600 JACKIE Stop: 07/13/19 20:00 Last Admin: 07/13/19 16:50 Dose: 25 units Documented by: [id number] Cosigned by: [id number] Ioversol (Optiray 320 125ml) 120 ml IV ONCE PRN PRN Reason: Interaction Checking Stop: 07/17/19 12:53 Last Admin: 07/13/19 12:54 Dose: 120 ml Documented by: [id number] Nitroglycerin (Nitrostat) 0.4 mg SL UD PRN PRN Reason: Chest Pain Stop: 08/12/19 12:29 Last Admin: 07/13/19 13:07 Dose: 0.4 mg Documented by: [id number] Ondansetron HCl (Zofran) 4 mg IV Q6H PRN PRN Reason: Nausea Stop: 08/12/19 16:24 Last Admin: 07/13/19 16:38 Dose: 4 mg Documented by: [id number] Discontinued Medications Adenosine (Adenosine) Confirm Administered Dose 6 mg IV .STK-MED ONE Stop: 07/13/19 13:43 Last Admin: 07/13/19 15:56 Dose: Not Given Documented by: [id number] Adenosine (Adenosine) Confirm Administered Dose 6 mg IV .STK-MED ONE Stop: 07/13/19 13:49 Last Admin: 07/13/19 15:56 Dose: Not Given Documented by: [id number] Adenosine (Adenosine) Confirm Administered Dose 6 mg IV .STK-MED ONE Stop: 07/13/19 14:04 Last Admin: 07/13/19 15:56 Dose: Not Given Documented by: [id number] Aspirin (Aspirin) 324 mg PO NOW STA Stop: 07/13/19 12:31 Last Admin: 07/13/19 12:35 Dose: 324 mg Documented by: [id number] Aspirin (Aspirin) Confirm Administered Dose 324 mg .ROUTE .STK-MED ONE Stop: 07/13/19 12:35 Last Admin: 07/13/19 12:48 Dose: Not Given Documented by: [id number] Atropine Sulfate (Atropine Sulfate) Confirm Administered Dose 1 mg IV .STK-MED ONE Stop: 07/13/19 14:07 Last Admin: 07/13/19 15:56 Dose: Not Given Documented by: [id number] Clopidogrel Bisulfate (Plavix) 600 mg PO NOW STA Stop: 07/13/19 13:22 Last Admin: 07/13/19 15:00 Dose: 600 mg Documented by: [id number] Fentanyl Citrate (Fentanyl Citrate) Confirm Administered Dose 100 mcg .ROUTE .STK-MED ONE Stop: 07/13/19 12:45 Last Admin: 07/13/19 12:50 Dose: Not Given Documented by: [id number] Heparin Sodium (Porcine) (Heparin Iv Bolus (Dispatch Clerk Use Only)) Confirm Administered Dose 10,000 units .ROUTE .STK-MED ONE Stop: 07/13/19 12:44 Last Admin: 07/13/19 15:54 Dose: Not Given Documented by: [id number] Heparin Sodium/Dextrose () 1 ea IV NOW STA; Protocol Stop: 07/13/19 13:22 Last Admin: 07/13/19 15:57 Dose: Not Given Documented by: [id number] Heparin Sodium/Sodium Chloride (Heparin/Nss 1000 Unit/500ml Flush Bag) Confirm Administered Dose 3,000 units IV .STK-MED ONE Stop: 07/13/19 12:45 Last Admin: 07/13/19 15:54 Dose: Not Given Documented by: [id number] Hydralazine HCl (Hydralazine Hcl) Confirm Administered Dose 20 mg .ROUTE .STK-ME D ONE Stop: 07/13/19 14:32 Last Admin: 07/13/19 15:12 Dose: Not Given Documented by: [id number] Sodium Chloride (Nss 1000ml) 1,000 mls @ 125 mls/hr IV .Q8H STA Stop: 07/13/19 20:40 Last Infusion: 07/13/19 14:40 Dose: 0 mls/hr Documented by: [id number] Admin: 07/13/19 12:40 Dose: 125 mls/hr Documented by: [id number] Heparin Sodium/Dextrose (Heparin Sodium/Dextrose) 25,000 units in 500 mls @ 0.02 mls/hr IV .Q24H JACKIE; Protocol Stop: 08/12/19 13:29 Last Admin: 07/13/19 15:56 Dose: Not Given Documented by: [id number] Midazolam HCl (Versed) Confirm Administered Dose 2 mg .ROUTE .STK-MED ONE Stop: 07/13/19 12:45 Last Admin: 07/13/19 15:55 Dose: Not Given Documented by: [id number] Nicardipine HCl (Cardene) Confirm Administered Dose 25 mg .ROUTE .STK-MED ONE Stop: 07/13/19 12:45 Last Admin: 07/13/19 15:54 Dose: Not Given Documented by: [id number] Nitroglycerin (Nitrostat) Confirm Administered Dose 0.4 mg .ROUTE .STK-MED ONE Stop: 07/13/19 12:35 Last Admin: 07/13/19 12:40 Dose: 0.4 mg Documented by: [id number] Nitroglycerin/Dextrose (Nitroglycerin/D5w 100 Mcg/Ml 20ml Syringe) Confirm Administered Dose 2,000 mcg .ROUTE .STK-MED ONE Stop: 07/13/19 12:45 Last Admin: 07/13/19 15:55 Dose: Not Given Documented by: [id number] Ondansetron HCl (Zofran) 4 mg IV NOW STA Stop: 07/13/19 12:31 Last Admin: 07/13/19 12:35 Dose: 4 mg Documented by: [id number] Ondansetron HCl (Zofran) Confirm Administered Dose 4 mg .ROUTE .STK-MED ONE Stop: 07/13/19 12:35 Last Admin: 07/13/19 12:48 Dose: Not Given Documented by: [id number] Imaging Data Radiologist's Impression: Radiology results as stated below per my review and the radiologist's interpretation: XR chest 1V portable CLINICAL HISTORY: Chest Pain COMPARISON STUDY: No previous studies for comparison. FINDINGS: Lung volumes are normal. Lungs are clear. There is no pneumothorax or pleural effusion. Cardiac size is normal. Mediastinal contours are normal. There is no evidence for pulmonary edema. IMPRESSION: No acute cardiopulmonary findings. Electronically signed by: Rick Rainey M.D. 07/13/2019 12:[address] ANGIOGRAPHY OF THE CHEST DISSECTION PROTOCOL CLINICAL HISTORY: severe back pain, AMI on ecg COMPARISON STUDY: Chest radiograph July 13, 2019. TECHNIQUE: Before and following the IV administration of 120 mL of Optiray-320, helical axial images of the chest were obtained. Maximal intensity projections and sagittal and coronal reformats were viewed on an independent 3D workstation. IV contrast was administered without complication. Automated exposure control was utilized for the study. A dose lowering technique was utilized adhering to the principles of ALARA. CT DOSE: 1165.84 mGy.cm FINDINGS: The caliber of the thoracic aorta is normal. There is irregular ulcerated plaque along the lateral aspect of the aortic arch. There is no thoracic aortic dissection or intramural hematoma. The heart is mildly enlarged. Multiple coronary artery stents are noted. There is extensive vascular calcification. No pneumothorax or pleural effusion is noted. There is no consolidation. Central airways are patent. No pulmonary emboli identified. Bony thorax is unremarkable. A cyst within the upper pole of the left kidney is partially imaged. There are suspected left renal calculi, including a suspected large calculus shown on the bell clerk image. IMPRESSION: 1. No thoracic aortic dissection. No pulmonary emboli. 2. Irregular ulcerated atherosclerotic plaque of the aortic arch. 3. Cardiomegaly. Extensive coronary artery calcification. 4. Left-sided nephrolithiasis. Electronically signed by: Rick Rainey M.D. 07/13/2019 1:16 PM ECG Data Attestation: I personally reviewed and interpreted this ECG as follows: Indication: + chest pain Rate (beats per minute): 77 Rhythm: normal sinus ECG Intervals/blocks: + Normal QRS ECG [place]: + Normal ECG ST segments: + ST elevation (Inferior) and + T-wave inversions (Lateral) ECG Findings: no PVCs Comparison ECG Date: from (07/30/12) Change: the following changes noted (ST elevation is new) Blood Pressure Blood Pressure Findings: Elevated blood pressure Blood Pressure Disposition: further management by hospitalist Discharge Plan Visit Data *Final* Discharge Date/Time: 07/13/19 13:16 Chief Complaint: Chest Pain Stated Complaint: CHEST PAIN ED Provider: Elias Coates Discharge Problem: Acute ST elevation myocardial infarction (STEMI) Patient Disposition: Still a Patient Discharge Instructions Interventions: ED Discharge Assessment Last Done: 07/13/19 13:16 Discharge Problem: Acute ST elevation myocardial infarction (STEMI) Qualifiers: Involved coronary artery: unspecified coronary artery Qualified Code(s): I21.3 - ST elevation (STEMI) myocardial infarction of unspecified site The scribe's documentation has been prepared under my direction and personally reviewed by me in its entirety. I confirm that the note above accurately reflects all work, treatment, procedures, and medical decision making performed by me.
--- NOTE | 2019-07-14 02:52 | Critical Care Progress Note ---
Date of Service July 14, 2019 Assessment & Plan (1) Admitted to intensive care unit: Reason Critically Ill: 78-year-old female here for s/ppci with nyla for STEMI. Past medical history significant for Coronary artery disease, diabetes, hypertension, multiple sclerosis Neuro: -CAM ICU: NEGATIVE -Notify provider of chest pain Cardiac: Stemi Status post cardiac catheterization with findings of 90% ostial RCA occlusion, 100% distal RCA occlusion, 70% mid LAD occlusion, 90% nondominant circumflex occlusion. A drug-eluting stent was placed to the ostial left anterior descending. Patient is hypertensive in the postoperative period -Cardiology consulted following recommendations -Routine post cath care -On dual antiplatelet therapy with aspirin and clopidogrel, on losartan 50 mg daily, metoprolol 25 mg daily, and 5 mg rosuvastatin daily Respiratory: -Saturating 98% on room air -No concerns at present GI: -Heart healthy diet RENAL/LYTES: -No significant electrolyte derangement. -Replace lytes as needed. SUSANNAH CR 1.44 -DC'd LR, patient put out 2500 ml yesterday -Pressures holding stable -Follow-up a.m. labs : - No concerns at this time. ENDO: DMII -glycemic cx placed HEME: - Stable H&H. -Follow-up a.m. labs ID: -No concerns for infection at this point. -Monitor fever curve. LINES/IV ACCESS: -PIVs intact. DVT PROPHYLAXIS: -Received intraoperative heparin and loaded with antiplatelets -Start Lovenox for DVT PPX today, first dose this evening Dispo: icu for now should be stable for tx later today. Thank you for allowing us to be part of this patient's care. Please refer to Dr. Perea's documentation for any further recommendations. (2) Acute ST elevation myocardial infarction (STEMI): (3) History of coronary artery stent placement: (4) HTN (hypertension): (5) MS (multiple sclerosis): Supervising Physician Co-Signing Physician Notes Dr. Quiñonez was the resident-physician during care of patient. I separately evaluated patient for colon portions of the history and the exam. I was present during the critical portion of medical decision making, and I discussed the case with the resident. I generally agree with the findings and plan except for any additions/exceptions noted. Case discussed with hospice social worker today. Patient is very stable. She is status post ST elevation myocardial infarction. She had an RCA that was ballooned open and was found to have an ostial RCA lesion which underwent a drug-eluting stent. She is currently on dual antiplatelets and appropriate drug therapy. She can be transferred to the floor with telemetry. She had an echocardiogram performed today. Subjective Patient lying comfortably in bed in no acute distress. Patient no acute events overnight. Yesterday was somnolent increased level of consciousness throughout the day. Patient has a heart healthy carb consistent diet ordered to the best my knowledge she has not eaten yet, Oneill catheter in place, no bowel movements, sleeping well. Acute concerns are present related ultimate prognosis, all questions answered. Physical Exam Physical Exam: General: Elderly female sleeping comfortably in bed in no acute distress HEENT: Normocephalic atraumatic Neck: Normal to visual inspection Cardiac: Regular rate and rhythm, I did not appreciate any significant murmurs rubs or gallops, normal S1 normal S2, negative significant pedal edema Respiratory: Clear to auscultation bilaterally without significant wheezes, rales, rhonchi GI: Soft, nontender, nondistended MSK: Moves extremities Skin: No concerns Results & Data Vital Signs (Past 12 Hours) Vital Signs Temp Pulse Pulse Resp BP BP Pulse Ox 07/14/19 01:28 80 17 167/80 H 98 07/14/19 00:28 91 H 16 168/82 H 98 07/14/19 00:00 36.7 C 85 22 96 07/13/19 23:27 90 20 154/87 H 97 07/13/19 22:27 80 17 149/65 H 96 07/13/19 21:28 16 144/111 H 97 07/13/19 21:10 78 07/13/19 20:00 36.7 C 77 17 155/69 H 92 07/13/19 19:00 74 22 151/87 H 100 07/13/19 18:00 74 14 157/89 H 97 07/13/19 17:00 73 12 172/83 H 98 07/13/19 16:30 77 13 162/80 H 99 07/13/19 16:00 74 12 172/80 H 99 07/13/19 15:30 74 11 L 181/89 H 07/13/19 15:20 70 07/13/19 15:15 70 12 164/68 H 98 07/13/19 15:00 70 12 177/65 H 98 07/13/19 14:45 36.1 C L 75 12 164/71 H 98 Laboratory Results 07/13/19 07/13/19 07/13/19 Range/Units 20:43 15:52 15:00 WBC (4.8-10.8) K/uL RBC (4.2-5.4) M/uL Hgb (12.0-16.0) g/dL POC Hgb (12.0-16.0) g/dl Hct (37-47) % POC Hct (37-47) % MCV (80-100) fL MCH (25-34) pg MCHC (32-36) g/dL RDW Std Deviation (36.4-46.3) fL RDW Coeff of Cindy (11.5-14.5) % Plt Count (130-400) K/uL MPV (7.4-10.4) fL Neutrophils % (Manual) % Lymphocytes % (Manual) % Monocytes % (Manual) % Basophils % (Manual) % Neutrophils # (Manual) (1.4-6.5) K/uL Total Absolute Neuts (1.4-6.5) K/uL Lymphocytes # (Manual) (1.2-3.4) K/uL Total Abs Lymphocytes (1.2-3.4) K/uL Monocytes # (Manual) (0.11-0.59) K/uL Basophils # (Manual) (0-0.2) K/uL Large Granular Lymphs % # Lrg Granular Lymphs K/uL Blood Smear Review RBC Morphology PT (9.0-12.0) Seconds INR (0.9-1.1) APTT (21.0-31.0) Seconds PTT Ratio POC Sodium (135-144) mEq/L Sodium (136-145) mmol/L POC Potassium (3.3-5.0) mEq/L Potassium (3.5-5.1) mmol/L POC Chloride (101-112) mEq/L Chloride (98-107) mmol/L Carbon Dioxide (21-32) mmol/L POC Total CO2 (24-31) mEq/l Anion Gap (3-11) POC Anion Gap (16-25) mmol/L POC BUN (7-18) mg/dl BUN (7-18) mg/dl Creatinine (0.6-1.2) mg/dl POC Creatinine (0.6-1.3) mg/dl Est Cr Clr Drug Dosing ml/min Est GFR ( Amer) Est GFR (Non-Af Amer) BUN/Creatinine Ratio (10-20) Glucose (70-99) mg/dl POC Glucose 206 H 219 H (70-99) POC Glucose (other) (70-99) mg/dl Calcium (8.5-10.1) mg/dl POC Ioniz Calcium Sharon (1.12-1.32) mmol/l Total Bilirubin (0.2-1) mg/dl AST (15-37) U/L ALT (12-78) U/L Alkaline Phosphatase (45-117) U/L Troponin I (0-0.045) ng/ml Total Protein (6.4-8.2) gm/dl Albumin (3.4-5.0) gm/dl Globulin (2.5-4.0) gm/dl Albumin/Globulin Ratio (0.9-2) Lipase (73-393) U/L Nasal Screen MRSA (PCR) Negative (Negative) 07/13/19 07/13/19 07/13/19 Range/Units 12:38 12:34 12:34 WBC (4.8-10.8) K/uL RBC (4.2-5.4) M/uL Hgb (12.0-16.0) g/dL POC Hgb 15.3 (12.0-16.0) g/dl Hct (37-47) % POC Hct 45 (37-47) % MCV (80-100) fL MCH (25-34) pg MCHC (32-36) g/dL RDW Std Deviation (36.4-46.3) fL RDW Coeff of Cindy (11.5-14.5) % Plt Count (130-400) K/uL MPV (7.4-10.4) fL Neutrophils % (Manual) % Lymphocytes % (Manual) % Monocytes % (Manual) % Basophils % (Manual) % Neutrophils # (Manual) (1.4-6.5) K/uL Total Absolute Neuts (1.4-6.5) K/uL Lymphocytes # (Manual) (1.2-3.4) K/uL Total Abs Lymphocytes (1.2-3.4) K/uL Monocytes # (Manual) (0.11-0.59) K/uL Basophils # (Manual) (0-0.2) K/uL Large Granular Lymphs % # Lrg Granular Lymphs K/uL Blood Smear Review RBC Morphology PT 9.8 (9.0-12.0) Seconds INR 1.0 (0.9-1.1) APTT 25.1 (21.0-31.0) Seconds PTT Ratio 0.9 POC Sodium 142 (135-144) mEq/L Sodium 140 (136-145) mmol/L POC Potassium 4.3 (3.3-5.0) mEq/L Potassium 3.5 (3.5-5.1) mmol/L POC Chloride 110 (101-112) mEq/L Chloride 108 H (98-107) mmol/L Carbon Dioxide 25 (21-32) mmol/L POC Total CO2 23 L (24-31) mEq/l Anion Gap 7.0 (3-11) POC Anion Gap 14.0 L (16-25) mmol/L POC BUN 35 H (7-18) mg/dl BUN 30 H (7-18) mg/dl Creatinine 1.44 H (0.6-1.2) mg/dl POC Creatinine 1.3 (0.6-1.3) mg/dl Est Cr Clr Drug Dosing 35.9 ml/min Est GFR ( Amer) 40.8 Est GFR (Non-Af Amer) 35.2 BUN/Creatinine Ratio 21.0 H (10-20) Glucose 118 H (70-99) mg/dl POC Glucose (70-99) POC Glucose (other) 115 H (70-99) mg/dl Calcium 9.7 (8.5-10.1) mg/dl POC Ioniz Calcium Sharon 1.11 L (1.12-1.32) mmol/l Total Bilirubin 0.6 (0.2-1) mg/dl AST 25 (15-37) U/L ALT 28 (12-78) U/L Alkaline Phosphatase 100 (45-117) U/L Troponin I 0.097 H* (0-0.045) ng/ml Total Protein 8.6 H (6.4-8.2) gm/dl Albumin 3.9 (3.4-5.0) gm/dl Globulin 4.7 H (2.5-4.0) gm/dl Albumin/Globulin Ratio 0.8 L (0.9-2) Lipase 158 (73-393) U/L Nasal Screen MRSA (PCR) (Negative) 07/13/19 Range/Units 12:34 WBC 10.85 H (4.8-10.8) K/uL RBC 4.86 (4.2-5.4) M/uL Hgb 14.8 (12.0-16.0) g/dL POC Hgb (12.0-16.0) g/dl Hct 43.0 (37-47) % POC Hct (37-47) % MCV 88.5 (80-100) fL MCH 30.5 (25-34) pg MCHC 34.4 (32-36) g/dL RDW Std Deviation 46.8 H (36.4-46.3) fL RDW Coeff of Cindy 14.3 (11.5-14.5) % Plt Count 207 (130-400) K/uL MPV 10.5 H (7.4-10.4) fL Neutrophils % (Manual) 23.0 % Lymphocytes % (Manual) 15.9 % Monocytes % (Manual) 7.1 % Basophils % (Manual) 0.9 % Neutrophils # (Manual) 2.50 (1.4-6.5) K/uL Total Absolute Neuts 2.50 (1.4-6.5) K/uL Lymphocytes # (Manual) 1.73 (1.2-3.4) K/uL Total Abs Lymphocytes 7.49 H (1.2-3.4) K/uL Monocytes # (Manual) 0.77 H (0.11-0.59) K/uL Basophils # (Manual) 0.10 (0-0.2) K/uL Large Granular Lymphs 53.1 % # Lrg Granular Lymphs 5.76 K/uL Blood Smear Review Pending RBC Morphology Unremarkable PT (9.0-12.0) Seconds INR (0.9-1.1) APTT (21.0-31.0) Seconds PTT Ratio POC Sodium (135-144) mEq/L Sodium (136-145) mmol/L POC Potassium (3.3-5.0) mEq/L Potassium (3.5-5.1) mmol/L POC Chloride (101-112) mEq/L Chloride (98-107) mmol/L Carbon Dioxide (21-32) mmol/L POC Total CO2 (24-31) mEq/l Anion Gap (3-11) POC Anion Gap (16-25) mmol/L POC BUN (7-18) mg/dl BUN (7-18) mg/dl Creatinine (0.6-1.2) mg/dl POC Creatinine (0.6-1.3) mg/dl Est Cr Clr Drug Dosing ml/min Est GFR ( Amer) Est GFR (Non-Af Amer) BUN/Creatinine Ratio (10-20) Glucose (70-99) mg/dl POC Glucose (70-99) POC Glucose (other) (70-99) mg/dl Calcium (8.5-10.1) mg/dl POC Ioniz Calcium Sharon (1.12-1.32) mmol/l Total Bilirubin (0.2-1) mg/dl AST (15-37) U/L ALT (12-78) U/L Alkaline Phosphatase (45-117) U/L Troponin I (0-0.045) ng/ml Total Protein (6.4-8.2) gm/dl Albumin (3.4-5.0) gm/dl Globulin (2.5-4.0) gm/dl Albumin/Globulin Ratio (0.9-2) Lipase (73-393) U/L Nasal Screen MRSA (PCR) (Negative) Medications Administered Current Inpatient Medications Aspirin (Ecotrin) 325 mg PO QAM JACKIE Stop: 08/13/19 08:59 Clopidogrel Bisulfate (Plavix) 75 mg PO DAILY JACKIE Stop: 08/13/19 08:59 Dextrose (Dextrose 50%) 25 - 50 ml IV UD PRN; Protocol PRN Reason: Hypoglycemia Protocol Stop: 08/12/19 15:14 Fentanyl Citrate (Fentanyl Citrate) 50 mcg IV Q15M PRN PRN Reason: Pain Stop: 07/27/19 12:36 Last Admin: 07/13/19 12:41 Dose: 50 mcg Documented by: Glucagon (Glucagen) 1 mg IM UD PRN; Protocol PRN Reason: Hypoglycemia Protocol Stop: 08/12/19 15:14 Glucose (Glucose 40%) 15 - 30 gm PO UD PRN; Protocol PRN Reason: Hypoglycemia Protocol Stop: 08/12/19 15:14 Glucose (Dex4 Glucose) 4 - 8 tabs PO UD PRN; Protocol PRN Reason: Hypoglycemia Protocol Stop: 08/12/19 15:14 Insulin Aspart (Novolog Flexpen) 0 units SC ACHS JACKIE; Protocol Stop: 08/12/19 16:29 Last Admin: 07/13/19 21:34 Dose: 4 units Documented by: Insulin Glargine (Lantus Solostar Pen) 50 units SQ QAM JACKIE Stop: 08/13/19 08:59 Ioversol (Optiray 320 125ml) 120 ml IV ONCE PRN PRN Reason: Interaction Checking Stop: 07/17/19 12:53 Last Admin: 07/13/19 12:54 Dose: 120 ml Documented by: Levothyroxine Sodium (Synthroid) 175 mcg PO DAILYBB [facility] Stop: 08/13/19 06:29 Losartan Potassium (Cozaar) 50 mg PO DAILY [facility] Stop: 08/13/19 08:59 Metoprolol Tartrate (Lopressor) 25 mg PO DAILY [facility] Stop: 08/13/19 08:59 Miscellaneous (Carbohydrates For Hypoglycemia) 15 - 30 gm PO UD PRN PRN Reason: Hypoglycemia Treatment Stop: 08/12/19 15:14 Miscellaneous Information (Consult Glycemic Management Pharmacy) 1 ea N/A UD PRN PRN Reason: Consult Stop: 08/12/19 15:26 Nitroglycerin (Nitrostat) 0.4 mg SL UD PRN PRN Reason: Chest Pain Stop: 08/12/19 12:29 Last Admin: 07/13/19 13:07 Dose: 0.4 mg Documented by: Ondansetron HCl (Zofran) 4 mg IV Q6H PRN PRN Reason: Nausea Stop: 08/12/19 16:24 Last Admin: 07/13/19 22:48 Dose: 4 mg Documented by: Pantoprazole Sodium (Protonix) 40 mg PO DAILY [facility] Stop: 08/13/19 08:59 Rosuvastatin Calcium (Crestor) 5 mg PO DAILY [facility] Stop: 08/13/19 08:59 Resident Activity Tracking Resident Involvement: Resident Care Provided Care Provided: Adult Hospital Medicine (1) Acute ST elevation myocardial infarction (STEMI) Involved coronary artery: unspecified coronary artery Qualified Code(s): I21.3 - ST elevation (STEMI) myocardial infarction of unspecified site
[2019-07-14 04:33] LABS: Basophils # (auto) 0.02 K/uL (0-0.2); Basophils % (auto) 0.2 %; Eosinophils # (auto) 0.13 K/uL (0-0.5); Eosinophils % (auto) 1.2 %; Hematocrit (blood only) 38.5 % (37-47); Immature Granulocytes # (auto) 0.03 K/uL (0.00-0.02); Immature Granulocytes % (auto) 0.3 %; Lymphocytes % (auto) 33.3 %; Mean Corpuscular Hemoglobin 29.8 pg (25-34); Mean Corpuscular Hgb Conc 33.8 g/dL (32-36); Mean Corpuscular Volume 88.3 fL (80-100); Mean Platelet Volume 11.8 fL (7.4-10.4); Monocytes # (auto) 1.08 K/uL (0.11-0.59); Monocytes % (auto) 9.7 %; Neutrophils # (auto) 6.15 K/uL (1.4-6.5); Neutrophils % (auto) 55.3 %; Platelet Count 176 K/uL (130-400); RDW Coefficient of Variation 14.6 % (11.5-14.5); RDW Standard Deviation 47.6 fL (36.4-46.3); Red Blood Count 4.36 M/uL (4.2-5.4); White Blood Count 11.11 K/uL (4.8-10.8)
[2019-07-14 04:47] LABS: Prothrombin Time 10.5 Seconds (9.0-12.0)
[2019-07-14 04:49] LABS: BUN Creatinine Ratio 19.3 (10-20); Calcium 8.7 mg/dl (8.5-10.1); Creatinine Clr Calc Pharmacy 34.9 ml/min; Est GFR (African American) 39.5; Potassium 3.8 mmol/L (3.5-5.1)
[2019-07-14 04:52] LABS: Phosphorus 4.1 mg/dl (2.5-4.9)
[2019-07-14] MEDS: LEVOTHYROXINE SODIUM 175 MCG TABLET PO SCH (06:12)
[2019-07-14] MEDS: INSULIN GLARGINE SOLOSTAR 100 UNITS/ML 3 ML PEN SQ SCH (08:11)
[2019-07-14] MEDS: INSULIN ASPART 100 UNITS/ML 3 ML PEN SC SCH ×4 (08:12→20:26)
[2019-07-14] MEDS: CLOPIDOGREL BISULFATE 75 MG TAB PO SCH (08:16)
[2019-07-14] MEDS: LOSARTAN POTASSIUM 50 MG TAB PO SCH (08:16)
[2019-07-14] MEDS: ASPIRIN 325 MG ECTAB PO SCH (08:17)
[2019-07-14] MEDS ORDERED: ROSUVASTATIN CALCIUM 5 MG TAB PO SCH (09:00)
[2019-07-14] MEDS ORDERED: METOPROLOL TARTRATE 25 MG TAB PO SCH (09:00)
[2019-07-14] MEDS ORDERED: CLOPIDOGREL BISULFATE 75 MG TAB PO SCH (09:00)
[2019-07-14] MEDS ORDERED: PANTOprazole 40 MG TAB PO SCH (09:00)
--- NOTE | 2019-07-14 09:12 | Billing Data ---
Date of Service July 14, 2019 Coding Level of Care Code 70582 Subseq Hosp Care Lvl 2
--- NOTE | 2019-07-14 09:24 | Hospitalist Progress Note ---
Date of Service July 14, 2019 Assessment & Plan (1) Acute ST elevation myocardial infarction (STEMI): History of ischemic heart disease. Presented to ED with intermittent chest pain for a few days and prolonged chest pain the day of admission. EKG demonstrated inferior STEMI. Troponin I 0.097. Heart alert called and taken to carpenter labor supervisor emergently. Cath demonstrated 90% ostial RCA 100% distal RCA 70% mid LAD 90% non-dominate circ. PCI with POBA of RCA. 4.0 x 12mm ELLE to ostial LAD performed. Minimal transient chest pressure this morning. Echo pending. Continue aspirin, clopidogrel, metoprolol, losartan, statin. Further management per Cardiology. (2) CAD (coronary artery disease): As noted above. (3) HTN (hypertension): Continue metoprolol and losartan. (4) GERD (gastroesophageal reflux disease): Continue PPI. (5) Diabetes mellitus, type II: DM type 2, managed with Lantus and NovoLog at home. Hgb A1C pending. Lantus / Novolog per protocol. FBS today = 120. (6) Dyslipidemia: LDL-c = 182 on rosulvastatin 5 mg daily. Increase rosuvastatin to 40 mg daily. (7) MS (multiple sclerosis): Neuro status stable. (8) DVT prophylaxis: SQ enoxaparin. Ambulate. (9) Discharge planning issues: Anticipated discharge to home. Primary care follow-up with Dr. Regan Hough with [facility] in [place]. Cardiology follow-up with Dr. Jd Best with [facility]. Subjective Recheck for STEMI and other problems. Patient seen in their room around 0900. Doing well. Minimal substernal pressure this morning, transient, resolved without Rx. No SOB. Review of Systems: Constitutional- no fever. Cardiac- as noted above. Pulmonary- no cough or SOB. GI- nausea yesterday-resolved; no vomiting, diarrhea, melena, hematochezia. - Oneill cath. Otherwise, as noted above. Physical Exam Constitutional: no acute distress Eyes: + anicteric sclerae Respiratory: no respiratory distress Auscultation: lungs clear to auscultation bilaterally Cardiovascular: Rate/Rhythm: regular rate and regular rhythm Heart Sounds: + murmur (II/ sys murmur at base); no gallop and no cardiac rub Vessels: no JVD Extremities: no calf tenderness and no edema Gastrointestinal (Abdomen): normal bowel sounds, soft, nontender, no hepatosplenomegaly Musculoskeletal: Extremities: no cyanosis Skin: no rashes, warm and dry Psychiatric: Orientation: alert and oriented x 3 Results & Data Vital Signs (Past 12 Hours) Vital Signs Temp Pulse Resp BP Pulse Ox 07/14/19 09:00 78 20 07/14/19 08:28 88 20 116/73 07/14/19 08:26 99 H 20 138/70 07/14/19 08:00 36.5 C 86 19 07/14/19 07:28 85 18 133/77 99 07/14/19 06:00 77 14 96 07/14/19 05:28 80 15 178/67 H 95 07/14/19 04:28 75 14 152/64 H 96 07/14/19 04:00 36.8 C 07/14/19 03:28 81 24 152/62 H 96 07/14/19 02:28 80 17 155/77 H 95 07/14/19 01:28 80 17 167/80 H 98 07/14/19 00:28 91 H 16 168/82 H 98 07/14/19 00:00 36.7 C 85 22 96 07/13/19 23:27 90 20 154/87 H 97 07/13/19 22:27 80 17 149/65 H 96 07/13/19 21:28 16 144/111 H 97 Laboratory Results 07/14/19 04:11 07/14/19 04:11 Laboratory Tests 07/14/19 07/14/19 04:11 04:11 Troponin I 5.780 H* Triglycerides 150 Cholesterol 280 H LDL Cholesterol, Calc 182 HDL Cholesterol 68 ECG Additional Comments: EKG performed at 0648 reviewed and demonstrated NSR at 76 / min, evolving inferior MA, lateral (1) Acute ST elevation myocardial infarction (STEMI) Involved coronary artery: unspecified coronary artery Qualified Code(s): I21.3 - ST elevation (STEMI) myocardial infarction of unspecified site
--- NOTE | 2019-07-14 09:52 | Cardiology Progress Note ---
Date of Service July 14, 2019 Assessment & Plan (1) Acute ST elevation myocardial infarction (STEMI): Patient presented with acute inferior ST segment elevation function infarction with cardiac catheterization demonstrating diffuse disease with a highly stented right coronary artery. Patient received plain old balloon angioplasty to the mid and distal right coronary artery and drug-eluting stent to the ostium of the right coronary artery. Residual disease was noted with diffusely diseased small left circumflex and a 70% mid LAD stenosis Echocardiogram this morning demonstrates normal to hyperdynamic LV function EF greater than 70% Patient currently asymptomatic Plan: Increase beta-hima therapy with an additional 25 mg metoprolol p.o. now and twice daily. Intensification of lipid-lowering therapy with rosuvastatin 40 mg/day Continue dual antiplatelet therapy Observe for clinical course regarding residual disease either future intervention versus stress testing warranted (2) History of coronary artery stent placement: Drug-eluting stent to the ostial right coronary artery Past history of multiple stents right coronary artery (3) HTN (hypertension): Beta-hima increased (4) CAD (coronary artery disease): (5) Dyslipidemia: Rosuvastatin increased (6) Atherosclerotic ulcer of aorta: CT scan to exclude dissection demonstrated an ulcerated plaque within the lateral arch of the aorta Management as above treatment of hypertension and lipids Radial approach appropriate for any future coronary prevention Subjective Patient seen and examined, chart, medications, telemetry reviewed. Hospital course reviewed and discussed with patient No chest pains or discomfort overnight overall feels back to baseline. No dizziness or lightness no syncope or near syncope. Presenting anginal symptoms were burning sensation across the chest with movement Physical Exam Constitutional: WD/WN, vitals as above Eyes: PERRL ENMT: external ear and nose normal, oropharynx normal Neck: trachea midline, no thyromegaly Respiratory: normal respiratory effort, lungs clear to auscultation Cardiovascular: Rate/Rhythm: regular rate and regular rhythm Heart Sounds: normal S1 and normal S2; no gallop and no murmur Palpation: normal PMI Vessels: normal carotid upstroke and radial pulses present (Radial access site healing well); no JVD and no carotid bruit Extremities: no edema Gastrointestinal (Abdomen): normal bowel sounds, soft, nontender, no hepatosplenomegaly Musculoskeletal: no cyanosis or clubbing, extremities motor strength 5/5 Skin: no rashes, warm and dry Neurologic: PERRL, EOMI, accommodation nl, no face palsy, no dysarthria Psychiatric: A+Ox3, euthymic affect Results & Data Vital Signs (Past 12 Hours) Vital Signs Temp Pulse Resp BP Pulse Ox 07/14/19 09:00 78 20 07/14/19 08:28 88 20 116/73 07/14/19 08:26 99 H 20 138/70 07/14/19 08:00 36.5 C 86 19 07/14/19 07:28 85 18 133/77 99 07/14/19 06:00 77 14 96 07/14/19 05:28 80 15 178/67 H 95 07/14/19 04:28 75 14 152/64 H 96 07/14/19 04:00 36.8 C 07/14/19 03:28 81 24 152/62 H 96 07/14/19 02:28 80 17 155/77 H 95 07/14/19 01:28 80 17 167/80 H 98 07/14/19 00:28 91 H 16 168/82 H 98 07/14/19 00:00 36.7 C 85 22 96 07/13/19 23:27 90 20 154/87 H 97 07/13/19 22:27 80 17 149/65 H 96 Laboratory Results Laboratory Results - last 24 hr 07/13/19 07/13/19 07/13/19 12:34 12:34 12:34 WBC 10.85 H RBC 4.86 Hgb 14.8 POC Hgb Hct 43.0 POC Hct MCV 88.5 MCH 30.5 MCHC 34.4 RDW Std Deviation 46.8 H RDW Coeff of Cindy 14.3 Plt Count 207 MPV 10.5 H Immature Gran % (Auto) Neut % (Auto) Lymph % (Auto) Fleming % (Auto) Eos % (Auto) Baso % (Auto) Immature Gran # (Auto) Neut # (Auto) Lymph # (Auto) Fleming # (Auto) Eos # (Auto) Baso # (Auto) Neutrophils % (Manual) 23.0 Lymphocytes % (Manual) 15.9 Monocytes % (Manual) 7.1 Basophils % (Manual) 0.9 Neutrophils # (Manual) 2.50 Total Absolute Neuts 2.50 Lymphocytes # (Manual) 1.73 Total Abs Lymphocytes 7.49 H Monocytes # (Manual) 0.77 H Basophils # (Manual) 0.10 Large Granular Lymphs 53.1 # Lrg Granular Lymphs 5.76 Blood Smear Review Pending RBC Morphology Unremarkable PT 9.8 INR 1.0 APTT 25.1 PTT Ratio 0.9 POC Sodium Sodium 140 POC Potassium Potassium 3.5 POC Chloride Chloride 108 H Carbon Dioxide 25 POC Total CO2 Anion Gap 7.0 POC Anion Gap POC BUN BUN 30 H Creatinine 1.44 H POC Creatinine Est Cr Clr Drug Dosing 35.9 Est GFR ( Amer) 40.8 Est GFR (Non-Af Amer) 35.2 BUN/Creatinine Ratio 21.0 H Glucose 118 H POC Glucose POC Glucose (other) Estimat Average Glucose Hemoglobin A1c Calcium 9.7 POC Ioniz Calcium Sharon Phosphorus Magnesium Total Bilirubin 0.6 AST 25 ALT 28 Alkaline Phosphatase 100 Troponin I 0.097 H* Total Protein 8.6 H Albumin 3.9 Globulin 4.7 H Albumin/Globulin Ratio 0.8 L Triglycerides Cholesterol LDL Cholesterol, Calc VLDL Cholesterol, Calc HDL Cholesterol Cholesterol/HDL Ratio Lipase 158 Nasal Screen MRSA (PCR) 07/13/19 07/13/19 07/13/19 12:38 15:00 15:52 WBC RBC Hgb POC Hgb 15.3 Hct POC Hct 45 MCV MCH MCHC RDW Std Deviation RDW Coeff of Cindy Plt Count MPV Immature Gran % (Auto) Neut % (Auto) Lymph % (Auto) Fleming % (Auto) Eos % (Auto) Baso % (Auto) Immature Gran # (Auto) Neut # (Auto) Lymph # (Auto) Fleming # (Auto) Eos # (Auto) Baso # (Auto) Neutrophils % (Manual) Lymphocytes % (Manual) Monocytes % (Manual) Basophils % (Manual) Neutrophils # (Manual) Total Absolute Neuts Lymphocytes # (Manual) Total Abs Lymphocytes Monocytes # (Manual) Basophils # (Manual) Large Granular Lymphs # Lrg Granular Lymphs Blood Smear Review RBC Morphology PT INR APTT PTT Ratio POC Sodium 142 Sodium POC Potassium 4.3 Potassium POC Chloride 110 Chloride Carbon Dioxide POC Total CO2 23 L Anion Gap POC Anion Gap 14.0 L POC BUN 35 H BUN Creatinine POC Creatinine 1.3 Est Cr Clr Drug Dosing Est GFR ( Amer) Est GFR (Non-Af Amer) BUN/Creatinine Ratio Glucose POC Glucose 219 H POC Glucose (other) 115 H Estimat Average Glucose Hemoglobin A1c Calcium POC Ioniz Calcium Sharon 1.11 L Phosphorus Magnesium Total Bilirubin AST ALT Alkaline Phosphatase Troponin I Total Protein Albumin Globulin Albumin/Globulin Ratio Triglycerides Cholesterol LDL Cholesterol, Calc VLDL Cholesterol, Calc HDL Cholesterol Cholesterol/HDL Ratio Lipase Nasal Screen MRSA (PCR) Negative 07/13/19 07/14/19 07/14/19 20:43 04:11 04:11 WBC RBC Hgb POC Hgb Hct POC Hct MCV MCH MCHC RDW Std Deviation RDW Coeff of Cindy Plt Count MPV Immature Gran % (Auto) Neut % (Auto) Lymph % (Auto) Fleming % (Auto) Eos % (Auto) Baso % (Auto) Immature Gran # (Auto) Neut # (Auto) Lymph # (Auto) Fleming # (Auto) Eos # (Auto) Baso # (Auto) Neutrophils % (Manual) Lymphocytes % (Manual) Monocytes % (Manual) Basophils % (Manual) Neutrophils # (Manual) Total Absolute Neuts Lymphocytes # (Manual) Total Abs Lymphocytes Monocytes # (Manual) Basophils # (Manual) Large Granular Lymphs # Lrg Granular Lymphs Blood Smear Review RBC Morphology PT INR APTT PTT Ratio POC Sodium Sodium 142 POC Potassium Potassium 3.8 POC Chloride Chloride 110 H Carbon Dioxide 25 POC Total CO2 Anion Gap 7.0 POC Anion Gap POC BUN BUN 29 H Creatinine 1.48 H POC Creatinine Est Cr Clr Drug Dosing 34.9 Est GFR ( Amer) 39.5 Est GFR (Non-Af Amer) 34.0 BUN/Creatinine Ratio 19.3 Glucose 151 H POC Glucose 206 H POC Glucose (other) Estimat Average Glucose Pending Hemoglobin A1c Pending Calcium 8.7 POC Ioniz Calcium Sharon Phosphorus 4.1 Magnesium 2.0 Total Bilirubin AST ALT Alkaline Phosphatase Troponin I Total Protein Albumin Globulin Albumin/Globulin Ratio Triglycerides 150 Cholesterol 280 H LDL Cholesterol, Calc 182 VLDL Cholesterol, Calc 30 HDL Cholesterol 68 Cholesterol/HDL Ratio 4 Lipase Nasal Screen MRSA (PCR) 07/14/19 07/14/19 07/14/19 04:11 04:11 04:11 WBC 11.11 H RBC 4.36 Hgb 13.0 POC Hgb Hct 38.5 POC Hct MCV 88.3 MCH 29.8 MCHC 33.8 RDW Std Deviation 47.6 H RDW Coeff of Cindy 14.6 H Plt Count 176 MPV 11.8 H Immature Gran % (Auto) 0.3 Neut % (Auto) 55.3 Lymph % (Auto) 33.3 Fleming % (Auto) 9.7 Eos % (Auto) 1.2 Baso % (Auto) 0.2 Immature Gran # (Auto) 0.03 H Neut # (Auto) 6.15 Lymph # (Auto) 3.70 H Fleming # (Auto) 1.08 H Eos # (Auto) 0.13 Baso # (Auto) 0.02 Neutrophils % (Manual) Lymphocytes % (Manual) Monocytes % (Manual) Basophils % (Manual) Neutrophils # (Manual) Total Absolute Neuts Lymphocytes # (Manual) Total Abs Lymphocytes Monocytes # (Manual) Basophils # (Manual) Large Granular Lymphs # Lrg Granular Lymphs Blood Smear Review RBC Morphology PT 10.5 INR 1.0 APTT PTT Ratio POC Sodium Sodium POC Potassium Potassium POC Chloride Chloride Carbon Dioxide POC Total CO2 Anion Gap POC Anion Gap POC BUN BUN Creatinine POC Creatinine Est Cr Clr Drug Dosing Est GFR ( Amer) Est GFR (Non-Af Amer) BUN/Creatinine Ratio Glucose POC Glucose POC Glucose (other) Estimat Average Glucose Hemoglobin A1c Calcium POC Ioniz Calcium Sharon Phosphorus Magnesium Total Bilirubin AST ALT Alkaline Phosphatase Troponin I 5.780 H* Total Protein Albumin Globulin Albumin/Globulin Ratio Triglycerides Cholesterol LDL Cholesterol, Calc VLDL Cholesterol, Calc HDL Cholesterol Cholesterol/HDL Ratio Lipase Nasal Screen MRSA (PCR) 07/14/19 07/14/19 07/14/19 07:30 09:56 11:23 WBC RBC Hgb POC Hgb Hct POC Hct MCV MCH MCHC RDW Std Deviation RDW Coeff of Cindy Plt Count MPV Immature Gran % (Auto) Neut % (Auto) Lymph % (Auto) Fleming % (Auto) Eos % (Auto) Baso % (Auto) Immature Gran # (Auto) Neut # (Auto) Lymph # (Auto) Fleming # (Auto) Eos # (Auto) Baso # (Auto) Neutrophils % (Manual) Lymphocytes % (Manual) Monocytes % (Manual) Basophils % (Manual) Neutrophils # (Manual) Total Absolute Neuts Lymphocytes # (Manual) Total Abs Lymphocytes Monocytes # (Manual) Basophils # (Manual) Large Granular Lymphs # Lrg Granular Lymphs Blood Smear Review RBC Morphology PT INR APTT PTT Ratio POC Sodium Sodium POC Potassium Potassium POC Chloride Chloride Carbon Dioxide POC Total CO2 Anion Gap POC Anion Gap POC BUN BUN Creatinine POC Creatinine Est Cr Clr Drug Dosing Est GFR ( Amer) Est GFR (Non-Af Amer) BUN/Creatinine Ratio Glucose POC Glucose 120 H 199 H POC Glucose (other) Estimat Average Glucose Hemoglobin A1c Calcium POC Ioniz Calcium Sharon Phosphorus Magnesium Total Bilirubin AST ALT Alkaline Phosphatase Troponin I 5.910 H* Total Protein Albumin Globulin Albumin/Globulin Ratio Triglycerides Cholesterol LDL Cholesterol, Calc VLDL Cholesterol, Calc HDL Cholesterol Cholesterol/HDL Ratio Lipase Nasal Screen MRSA (PCR) Diagnostic Findings Echocardiogram 07/14/2019: Moderate left hypertrophy with hyperdynamic LV function EF greater than 70% Heavy calcification of the posterior mitral valve annulus without valvular stenosis or insufficiency Aortic root is normal sized (1) Acute ST elevation myocardial infarction (STEMI) Involved coronary artery: unspecified coronary artery Qualified Code(s): I21.3 - ST elevation (STEMI) myocardial infarction of unspecified site
--- NOTE | 2019-07-14 11:21 | Pharmacy Report ---
Glycemic Control Consultation - Date of Service July 14, 2019 - Scope Scope: Glycemic Pharmacist consulted by Dr Quiñonez on 07/13/19 for glycemic control and to write orders per [facility] inpatient glycemic control protocol - Objective Weight: 85.6 kg Accuchecks BSG (last 24hrs): 07/13/19 07/13/19 07/13/19 12:34 12:38 15:52 Glucose 118 H POC Glucose 219 H POC Glucose (other) 115 H 07/13/19 07/14/19 07/14/19 20:43 04:11 07:30 Glucose 151 H POC Glucose 206 H 120 H POC Glucose (other) Laboratory Data (last 24hrs): 07/13/19 07/14/19 12:34 04:11 Potassium 3.5 3.8 Carbon Dioxide 25 25 Anion Gap 7.0 7.0 Creatinine 1.44 H 1.48 H Est Cr Clr Drug Dosing 35.9 34.9 - Recent Pertinent Medications Outpatient Anti-diabetic Regimen: * Humalog SSI, Lantus 50u QAM * A1c = pending - Assessment & Plan Assessment & Plan: ASSESSMENT: * Pt is a 78yo F type II diabetic. P/w STEMI, taken to [facility] for pPCI. PMHx consistent with CAD, GERD, HTN, HLD, MS. A1C is pending. She is ordered a heart healthy diet. Minimal other RF to confer insulin resistance at this juncture. PLAN FOR INPATIENT GLYCEMIC CONTROL: * Basal insulin * Lantus 25 units given yesterday evening. 50 units QAM started today (home Rx) * Bolus insulin * NovoLog per scale ACHS or Q6hrs while NPO * Goal Range: Low 140 mg/dL - High 180 mg/dL * Correction Factor: 20 mg/dL/unit * Nutritional / Prandial insulin per carb ratio of 1 unit per 8 grams CHO consumed * Please note that the plan above was derived based on current level of insulin resistance and hospital stress. These recommendations are appropriate for inpatient admission only. Plan of care upon discharge will need to be reassessed to avoid potential outpatient hypo/hyperglycemia. Thank you.
[2019-07-14] MEDS ORDERED: METOPROLOL TARTRATE 25 MG TAB PO STA (12:26)
[2019-07-14] MEDS: ALUMINUM/MAGNESIUM/SIMETH (MAALOX MAX) 30 ML UDC PO PRN ×2 (15:43→20:14)
[2019-07-14] MEDS: METOPROLOL TARTRATE 25 MG TAB PO SCH (19:48)
[2019-07-14] MEDS ORDERED: ACETAMINOPHEN 500 MG TAB PO PRN (20:00)
[2019-07-14] MEDS ORDERED: MoRPHine SULFATE 2 MG/ML CARP IV PRN ×2 (20:00→20:31)
[2019-07-14] MEDS: ENOXAPARIN INJ 40 MG/0.4 ML SYR SQ SCH (20:19)
--- NOTE | 2019-07-14 20:20 | Communication Note ---
Date of Service: July 14, 2019 C/O midsternal chest pressure this afternoon. EKG performed at 1445 reviewed and demonstrated NSR at 70 / min, ST elevation and T-wave inversion consistent with evolving inferior CO, additional inverted T-waves II, V4-V6. Received SL NTG with BP drop and lightheadedness, no relief of CP. Received Maalox with improvement of symptoms. Serial troponins: Laboratory Tests 07/13/19 07/14/19 07/14/19 12:34 04:11 09:56 Troponin I 0.097 H* 5.780 H* 5.910 H* 07/14/19 15:57 Troponin I 4.900 H* Complained of midsternal chest pressure again this evening. She preferred not to try NTG again. VSS. No distress. EKG performed at 2000 reviewed and demonstrated NSR at 72 / min, similar ST and T-wave changes. Current symptoms probably noncardiac. Recheck another troponin this evening. Treat GERD more aggressively. Continue to monitor.
[2019-07-14] MEDS: ONDANSETRON INJ 2 MG/ML 2 ML VIAL IV PRN (20:25)
[2019-07-14] MEDS ORDERED: FAMOTIDINE 20 MG in SYRINGE 3 ML IV ONE (20:35)
[2019-07-14] MEDS: PANTOprazole 40 MG TAB PO SCH (21:10)
[2019-07-15] MEDS: LEVOTHYROXINE SODIUM 175 MCG TABLET PO SCH (05:44)
[2019-07-15 06:50] LABS: Estimated Average Glucose 220 mg/dl; Hemoglobin A1C 9.3 % (4.5-5.6)
[2019-07-15 07:37] LABS: Hematocrit (blood only) 36.8 % (37-47); Mean Corpuscular Hemoglobin 29.2 pg (25-34); Mean Corpuscular Hgb Conc 32.6 g/dL (32-36); Mean Corpuscular Volume 89.5 fL (80-100); Mean Platelet Volume 11.1 fL (7.4-10.4); Platelet Count 189 K/uL (130-400); RDW Coefficient of Variation 14.7 % (11.5-14.5); RDW Standard Deviation 48.2 fL (36.4-46.3); Red Blood Count 4.11 M/uL (4.2-5.4); White Blood Count 10.22 K/uL (4.8-10.8)
[2019-07-15] MEDS: ONDANSETRON INJ 2 MG/ML 2 ML VIAL IV PRN (07:54)
[2019-07-15] MEDS: ROSUVASTATIN CALCIUM 20 MG TAB PO SCH (07:55)
[2019-07-15] MEDS: PANTOprazole 40 MG TAB PO SCH ×2 (07:55→21:27)
[2019-07-15] MEDS: LOSARTAN POTASSIUM 50 MG TAB PO SCH (07:56)
[2019-07-15] MEDS: ASPIRIN 325 MG ECTAB PO SCH (07:56)
[2019-07-15] MEDS: INSULIN ASPART 100 UNITS/ML 3 ML PEN SC SCH ×4 (07:56→21:29)
[2019-07-15] MEDS: CLOPIDOGREL BISULFATE 75 MG TAB PO SCH (07:56)
[2019-07-15] MEDS: INSULIN GLARGINE SOLOSTAR 100 UNITS/ML 3 ML PEN SQ SCH (07:57)
[2019-07-15 08:10] LABS: BUN Creatinine Ratio 20.9 (10-20); Calcium 8.9 mg/dl (8.5-10.1); Creatinine Clr Calc Pharmacy 30.4 ml/min; Est GFR (African American) 34.1; Est GFR (Non-African American) 29.4
[2019-07-15 08:25] LABS: Troponin I 3.44 ng/ml (0-0.045)
[2019-07-15] MEDS: METOPROLOL TARTRATE 25 MG TAB PO SCH ×2 (08:56→21:27)
[2019-07-15] MEDS ORDERED: LORazepam 0.25 MG/0.5 ML VIAL IV PRN (11:39)
[2019-07-15] MEDS ORDERED: LORazepam 0.25 MG/0.5 ML VIAL IV ONE (11:40)
[2019-07-15] MEDS ORDERED: FAMOTIDINE 20MG IV PUSH 20 MG/5 ML SYR IV ONE (12:00)
--- NOTE | 2019-07-15 12:00 | Cardiology Progress Note ---
Date of Service July 15, 2019 Assessment & Plan (1) Acute ST elevation myocardial infarction (STEMI): Patient presented with acute inferior ST segment elevation function infarction with cardiac catheterization demonstrating diffuse disease with a highly stented right coronary artery. Patient received plain old balloon angioplasty to the mid and distal right coronary artery and drug-eluting stent to the ostium of the right coronary artery. Residual disease was noted with diffusely diseased small left circumflex and a 70% mid LAD stenosis Echocardiogram this morning demonstrates normal to hyperdynamic LV function EF greater than 70% Patient currently asymptomatic Plan: Increase beta-hima therapy with an additional 25 mg metoprolol p.o. now and twice daily. Intensification of lipid-lowering therapy with rosuvastatin 40 mg/day Continue dual antiplatelet therapy Observe for clinical course regarding residual disease either future intervention versus stress testing warranted Patient yesterday with chest pain and again chest pain last night relieved with morphine. Residual LAD disease must be concerning. And patient will likely require repeat diagnostic cardiac catheterization versus intervention this admission. We will keep n.p.o. for now (2) History of coronary artery stent placement: Drug-eluting stent to the ostial right coronary artery Past history of multiple stents right coronary artery (3) HTN (hypertension): Beta-hima increased (4) CAD (coronary artery disease): (5) Dyslipidemia: Rosuvastatin increased (6) Atherosclerotic ulcer of aorta: CT scan to exclude dissection demonstrated an ulcerated plaque within the lateral arch of the aorta Management as above treatment of hypertension and lipids Radial approach appropriate for any future coronary prevention Subjective Patient seen, examined, chart medications and telemetry reviewed. Patient had intermittent episodes of chest discomfort yesterday. Received morphine last night with associated nausea this morning. Still with mild dyspnea. No tachyarrhythmias Physical Exam Constitutional: not in distress Nauseated Eyes: PERRL ENMT: external ear and nose normal, oropharynx normal Neck: trachea midline, no thyromegaly Respiratory: normal respiratory effort, lungs clear to auscultation Cardiovascular: Rate/Rhythm: regular rate and regular rhythm Heart Sounds: normal S1 and normal S2; no gallop and no murmur Palpation: normal PMI Vessels: normal carotid upstroke and radial pulses present (Radial access site healing well); no JVD and no carotid bruit Extremities: no edema Gastrointestinal (Abdomen): normal bowel sounds, soft, nontender, no hepatosplenomegaly Musculoskeletal: no cyanosis or clubbing, extremities motor strength 5/5 Skin: no rashes, warm and dry Neurologic: PERRL, EOMI, accommodation nl, no face palsy, no dysarthria Psychiatric: A+Ox3, euthymic affect Results & Data Vital Signs (Past 12 Hours) Vital Signs Temp Pulse Pulse Resp BP Pulse Ox 07/15/19 11:49 36.6 C 59 L 18 114/69 96 07/15/19 08:00 68 07/15/19 07:55 36.7 C 58 L 19 125/70 96 07/15/19 04:19 58 L 07/15/19 03:01 36.5 C 63 18 119/69 97 07/15/19 00:36 62 Laboratory Results Laboratory Results - last 24 hr 07/13/19 07/13/19 07/14/19 12:34 14:00 04:11 WBC RBC Hgb Hct MCV MCH MCHC RDW Std Deviation RDW Coeff of Cindy Plt Count MPV Blood Smear Review Activ Coag Time Kaolin 263 H Sodium Potassium Chloride Carbon Dioxide Anion Gap BUN Creatinine Est Cr Clr Drug Dosing Est GFR ( Amer) Est GFR (Non-Af Amer) BUN/Creatinine Ratio Glucose POC Glucose Estimat Average Glucose 220 Hemoglobin A1c 9.3 H Calcium Troponin I 07/14/19 07/14/19 07/14/19 15:57 16:10 20:20 WBC RBC Hgb Hct MCV MCH MCHC RDW Std Deviation RDW Coeff of Cindy Plt Count MPV Blood Smear Review Activ Coag Time Kaolin Sodium Potassium Chloride Carbon Dioxide Anion Gap BUN Creatinine Est Cr Clr Drug Dosing Est GFR ( Amer) Est GFR (Non-Af Amer) BUN/Creatinine Ratio Glucose POC Glucose 271 H 219 H Estimat Average Glucose Hemoglobin A1c Calcium Troponin I 4.900 H* 07/14/19 07/15/19 07/15/19 21:58 07:01 07:01 WBC 10.22 RBC 4.11 L Hgb 12.0 Hct 36.8 L MCV 89.5 MCH 29.2 MCHC 32.6 RDW Std Deviation 48.2 H RDW Coeff of Cindy 14.7 H Plt Count 189 MPV 11.1 H Blood Smear Review Activ Coag Time Kaolin Sodium 142 Potassium 4.0 Chloride 110 H Carbon Dioxide 25 Anion Gap 7.0 BUN 35 H Creatinine 1.67 H Est Cr Clr Drug Dosing 30.4 Est GFR ( Amer) 34.1 Est GFR (Non-Af Amer) 29.4 BUN/Creatinine Ratio 20.9 H Glucose 107 H POC Glucose Estimat Average Glucose Hemoglobin A1c Calcium 8.9 Troponin I 4.430 H* 3.440 H* 07/15/19 11:35 WBC RBC Hgb Hct MCV MCH MCHC RDW Std Deviation RDW Coeff of Cindy Plt Count MPV Blood Smear Review Activ Coag Time Kaolin Sodium Potassium Chloride Carbon Dioxide Anion Gap BUN Creatinine Est Cr Clr Drug Dosing Est GFR ( Amer) Est GFR (Non-Af Amer) BUN/Creatinine Ratio Glucose POC Glucose 107 H Estimat Average Glucose Hemoglobin A1c Calcium Troponin I (1) Acute ST elevation myocardial infarction (STEMI) Involved coronary artery: unspecified coronary artery Qualified Code(s): I21.3 - ST elevation (STEMI) myocardial infarction of unspecified site
[2019-07-15] MEDS: ENOXAPARIN INJ 40 MG/0.4 ML SYR SQ SCH (21:27)
--- NOTE | 2019-07-15 21:58 | Hospitalist Progress Note ---
Date of Service July 15, 2019 Assessment & Plan (1) Acute ST elevation myocardial infarction (STEMI): History of ischemic heart disease. Presented to ED with intermittent chest pain for a few days and prolonged chest pain the day of admission. EKG demonstrated inferior STEMI. Troponin I 0.097. Heart alert called and taken to [facility] emergently. Cath demonstrated 90% ostial RCA 100% distal RCA 70% mid LAD 90% non-dominate circ. PCI with plain old balloon angioplasty to mid and distal RCA and drug-eluting stent to the ostium of the RCA performed. Echo showed hyperdynamic LV without wall motion abnormalities. Troponin I peaked @ 5.91, down to 3.44 this a.m. Continue aspirin, clopidogrel, metoprolol, losartan, statin. Further management per Cardiology. (2) CAD (coronary artery disease): As noted above. (3) HTN (hypertension): Continue metoprolol and losartan. (4) GERD (gastroesophageal reflux disease): Continue PPI. (5) Renal insufficiency: Baseline creatinine unknown. Creatinine at time of admission was 1.44. Received dye load x 2 with CTA + cardiac cath. Creatinine today = 1.67. Follow. (6) Diabetes mellitus, type II: DM type 2, managed with Lantus and NovoLog at home. Hgb A1C 9.3. Lantus / Novolog per protocol. FBS today = 98. Seen by adaptive physical educator. (7) Dyslipidemia: LDL-c = 182 on rosulvastatin 5 mg daily. Increased rosuvastatin to 40 mg daily. (8) MS (multiple sclerosis): Neuro status stable. (9) DVT prophylaxis: SQ enoxaparin. Ambulate. (10) Discharge planning issues: Anticipated discharge to home. Primary care follow-up with Dr. Regan Hough with [facility] in [place]. Cardiology follow-up with Dr. Jd Best with [facility]. Subjective Recheck for STEMI and other problems. Patient seen in their room around 1120. visiting. No further chest pain. No SOB. Nauseated. Review of Systems: Constitutional- no fever. Cardiac- as noted above. Pulmonary- no cough or SOB. GI- nausea; no vomiting, diarrhea, melena, hematochezia. - voiding without difficulty. Otherwise, as noted above. Physical Exam Constitutional: no acute distress Eyes: + anicteric sclerae Respiratory: no respiratory distress Auscultation: lungs clear to auscultation bilaterally Cardiovascular: Rate/Rhythm: regular rate and regular rhythm Heart Sounds: + murmur (II/ sys murmur at base); no gallop and no cardiac rub Vessels: no JVD Extremities: no calf tenderness and no edema Gastrointestinal (Abdomen): normal bowel sounds, soft, nontender, no hepatosplenomegaly Musculoskeletal: Extremities: no cyanosis Skin: no rashes, warm and dry Psychiatric: Orientation: alert and oriented x 3 Results & Data Vital Signs (Past 12 Hours) Vital Signs Temp Pulse Pulse Resp BP Pulse Ox 07/15/19 20:12 36.7 C 64 18 138/75 96 07/15/19 15:58 36.5 C 62 18 142/68 H 96 07/15/19 11:49 36.6 C 59 L 18 114/69 96 Laboratory Results Laboratory Results - last 24 hr 07/13/19 07/13/19 07/14/19 12:34 14:00 04:11 WBC RBC Hgb Hct MCV MCH MCHC RDW Std Deviation RDW Coeff of Cindy Plt Count MPV Blood Smear Review Activ Coag Time Kaolin 263 H Sodium Potassium Chloride Carbon Dioxide Anion Gap BUN Creatinine Est Cr Clr Drug Dosing Est GFR ( Amer) Est GFR (Non-Af Amer) BUN/Creatinine Ratio Glucose POC Glucose Estimat Average Glucose 220 Hemoglobin A1c 9.3 H Calcium Troponin I 07/14/19 07/15/19 07/15/19 21:58 07:01 07:01 WBC 10.22 RBC 4.11 L Hgb 12.0 Hct 36.8 L MCV 89.5 MCH 29.2 MCHC 32.6 RDW Std Deviation 48.2 H RDW Coeff of Cindy 14.7 H Plt Count 189 MPV 11.1 H Blood Smear Review Activ Coag Time Kaolin Sodium 142 Potassium 4.0 Chloride 110 H Carbon Dioxide 25 Anion Gap 7.0 BUN 35 H Creatinine 1.67 H Est Cr Clr Drug Dosing 30.4 Est GFR ( Amer) 34.1 Est GFR (Non-Af Amer) 29.4 BUN/Creatinine Ratio 20.9 H Glucose 107 H POC Glucose Estimat Average Glucose Hemoglobin A1c Calcium 8.9 Troponin I 4.430 H* 3.440 H* 07/15/19 07/15/19 07/15/19 07:36 11:35 16:09 WBC RBC Hgb Hct MCV MCH MCHC RDW Std Deviation RDW Coeff of Cindy Plt Count MPV Blood Smear Review Activ Coag Time Kaolin Sodium Potassium Chloride Carbon Dioxide Anion Gap BUN Creatinine Est Cr Clr Drug Dosing Est GFR ( Amer) Est GFR (Non-Af Amer) BUN/Creatinine Ratio Glucose POC Glucose 98 107 H 176 H Estimat Average Glucose Hemoglobin A1c Calcium Troponin I 07/15/19 20:39 WBC RBC Hgb Hct MCV MCH MCHC RDW Std Deviation RDW Coeff of Cindy Plt Count MPV Blood Smear Review Activ Coag Time Kaolin Sodium Potassium Chloride Carbon Dioxide Anion Gap BUN Creatinine Est Cr Clr Drug Dosing Est GFR ( Amer) Est GFR (Non-Af Amer) BUN/Creatinine Ratio Glucose POC Glucose 240 H Estimat Average Glucose Hemoglobin A1c Calcium Troponin I (1) Acute ST elevation myocardial infarction (STEMI) Involved coronary artery: unspecified coronary artery Qualified Code(s): I21.3 - ST elevation (STEMI) myocardial infarction of unspecified site
[2019-07-16] MEDS: LEVOTHYROXINE SODIUM 175 MCG TABLET PO SCH (06:14)
[2019-07-16 08:20] LABS: BUN Creatinine Ratio 19.6 (10-20); Calcium 8.9 mg/dl (8.5-10.1); Creatinine Clr Calc Pharmacy 31.5 ml/min; Est GFR (African American) 35.6; Est GFR (Non-African American) 30.7; Potassium 3.9 mmol/L (3.5-5.1)
[2019-07-16] MEDS: INSULIN ASPART 100 UNITS/ML 3 ML PEN SC SCH ×4 (08:33→20:31)
[2019-07-16] MEDS: PANTOprazole 40 MG TAB PO SCH ×2 (08:34→20:30)
[2019-07-16] MEDS: METOPROLOL TARTRATE 25 MG TAB PO SCH ×2 (08:34→20:29)
[2019-07-16] MEDS: ASPIRIN 325 MG ECTAB PO SCH (08:34)
[2019-07-16] MEDS: CLOPIDOGREL BISULFATE 75 MG TAB PO SCH (08:35)
[2019-07-16] MEDS: LOSARTAN POTASSIUM 50 MG TAB PO SCH (08:35)
[2019-07-16] MEDS: ROSUVASTATIN CALCIUM 20 MG TAB PO SCH (08:35)
[2019-07-16] MEDS ORDERED: INSULIN GLARGINE SOLOSTAR 100 UNITS/ML 3 ML PEN SQ ONE (08:45)
[2019-07-16] MEDS ORDERED: NiCARDipine HCL INJ 2.5 MG/ML 10 ML AMP ONE (09:02)
[2019-07-16] MEDS ORDERED: HEPARIN (PORCINE) 1000 UNIT/ML 10 ML (CATH LAB USE ONLY) ONE ×2 (09:02→11:46)
[2019-07-16] MEDS ORDERED: fentaNYL citrate 100 MCG/2 ML VIAL ONE (09:03)
[2019-07-16] MEDS ORDERED: MIDAZOLAM HCL 1 MG/ML 2ML VIAL ONE (09:03)
[2019-07-16] MEDS ORDERED: NITROGLYCERIN/D5W 100MCG/ML 20ML SYR ONE (09:04)
[2019-07-16] MEDS ORDERED: ADENOSINE IV SOLN 3 MG/ML 20 ML VIAL IV ONE (11:25)
--- NOTE | 2019-07-16 12:21 | Pre Anesthesia Assessment ---
Date of Service July 16, 2019 Pre Sedation Assessment Vital Signs Temp Pulse Pulse Pulse Resp BP BP 07/16/19 07:30 98.2 F 68 18 132/75 07/16/19 03:36 98.1 F 64 18 144/74 H 07/16/19 00:00 97.7 F 66 65 18 127/71 07/15/19 20:12 98.1 F 64 18 138/75 07/15/19 15:58 97.7 F 62 18 142/68 H Pulse Ox 07/16/19 07:30 96 07/16/19 03:36 96 07/16/19 00:00 98 07/15/19 20:12 96 07/15/19 15:58 96 Cardiovascular RRR, no murmur, no edema Respiratory normal respiratory effort, lungs clear to auscultation Pre-Sedation Airway Assessment Smoking Status: Never smoker Hx Sleep Apnea: No Hx Difficult Intubation: No Short, Thick Neck: No Thyromental Distance: > or= 3.5 Finger Breadths Oral Cavity: + Chipped Teeth Mallampati Class: III ASA: ASA3 NPO Status Date of Last Intake of Fluids: 07/15/19 Time of Last Intake of Fluids: 20:00 Date of Last Intake of Solid Food: 07/15/19 Time of Last Intake of Solid Foods: 20:00 Procedure Planning Contraindications for Sedation: none Current Medications Reviewed: Yes Notes The planned sedation has been discussed with the patient. Informed Consent was obtained. I have identified the patient, determined the appropriateness of sedation and have assessed the patient immediately prior to the procedure. All medicine(s) and interventions are by my order.
--- NOTE | 2019-07-16 12:22 | Post Anesthesia Assessment ---
Date of Service July 16, 2019 Post Sedation Assessment Vital Signs Temp Pulse Pulse Pulse Resp BP BP 07/16/19 07:30 98.2 F 68 18 132/75 07/16/19 03:36 98.1 F 64 18 144/74 H 07/16/19 00:00 97.7 F 66 65 18 127/71 07/15/19 20:12 98.1 F 64 18 138/75 07/15/19 15:58 97.7 F 62 18 142/68 H Pulse Ox 07/16/19 07:30 96 07/16/19 03:36 96 07/16/19 00:00 98 07/15/19 20:12 96 07/15/19 15:58 96 Recovery Score Activity: Moves 4 extremities Respiration: Deep Breath/Cough Circulation: +/-20% PreAnes Value Consciousness: Fully Awake Oxygen Saturation: O2 needed for >90% Discharge Sedation Level of Care: Fast Track Phase II Post Sedation Plan On clinical assessment, the patient appears to have tolerated the sedation without complications. Patient is recovering as anticipated. Patient will continue to be monitored by nursing and may be discharged when sedation discharge criteria are met per below protocol. Upon Completions of procedure up to 15 minutes continue every 5 minute vital signs and the P.A.R. score; then discharge to a Phase I or Fast Track to Phase II per the following guidelines: * Discharge Patient to appropriate Phase II area if PAR is 8 or greater or return to pre- procedure baseline. The post - procedure orders will be as directed. * If PAR score is less than 8 or not return to pre-procedure baseline then patie nt will follow Phase I monitoring till PAR is reached for Phase II. The Phase I may be done in procedure room or may call to secure a Phase I area. * If naloxone or flumazenil are used for reversal, hold in Phase I for continued monitoring from when last reversal dose was given for a minimum of 60 minutes or longer pending the nurse and/or physician discretion of patient condition before discharge to Phase II. Please call the Sedation Physician to re-evaluate and complete post-note for discharge to Phase II area. Do NOT discharge from procedure sedation or Phase 1 until post- sedation ev aluation note is complete by procedure /sedation MD Sedation Discharge Instructions to be given to the patient at discharge to home.
--- NOTE | 2019-07-16 12:36 | Cardiac Catheterization ---
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 Cardiac Status Clinical evaluation leading to the procedure CAD Presenation: Unstable angina Anginal Classification: CCS IV Heart Failure: No Cardiogenic Shock within 24 Hours: No Cardiac Arrest within 24 Hours: No Imaging Studies Past 6 Months: Yes Stress Studies Past 6 Months: No Diagnostic Physicians Name: Haroon Silver MD Status: Elective Closure Device Percutaneous Entry Location: Radial Closure Device: Radial Band Recommendations: PCI without planned CABG PCI Indication: Staged PCI Lesion Segment Name: Mid LAD Culprit Artery: Yes Stenosis Prior to Rx (%): 70 Chronic Total Occlusion: No IVUS: Yes FFR: Yes Ratio: less than or equal to 0.75% Pre-Procedure YOSI Flow: 3 Previously Treated Lesion: Timeframe: greater than 2 years Treated with Stent: Yes In-Stent Restenosis: Yes Stent Type: Type Unknown Yes Lesion Complexity: High/C Lesion Length (mm): 25 Thrombus Present: No Bifurcation Lesion: No Guidewire Across Lesion: Stenosis Post-Procedure (%): 0 Post-Procedure YOSI Flow: 3 Devices(s) Deployed: Yes Yes Intraprocedure Events Significant Disection: No Perforation: No Cardiac Cath Procedure Full Procedure Date July 16, 2019 Pre-Procedure Diagnosis Pre-Procedure Diagnosis: Acute Coronary Syndrome AUC Score AUC Score: 7 Post-Procedure Diagnosis Post-Procedure Diagnosis: Successful PCI Procedure(s) Performed Procedure(s) Performed: Left Heart Cath and PTCA Preprint Analyst Haroon Silver MD Academic Affairs Vice President(s) Sahra Estimated Blood Loss Estimated Blood Loss: 10 Medication(s) Medication(s): Fentanyl, Heparin, Lidocaine 1%, Nicardipine, Nitroglycerin and Versed Summary of Findings Indication: Staged PCI of severe non-culprit vessel coronary artery disease following inferior STEMI Access: 6 Fr left radial artery Catheters: JL 3.5 guide Findings: For full details of patient's coronary angiography please cath report dictated by Dr. Barton. Inferior STEMI treated with angioplasty, repeat ELLE to RCA. Found to have 70% mid LAD stenosis. In the setting of recurrent chest pain decision made to proceed with PCI to LAD during initial hospitalization. LVEDP 8 -- PCI -- Antithrombotic therapy: Heparin, clopidogrel Procedure: Left main cannulated with JL 3.5 guide Oven Worker 50 wire passed across lesion into distal vessel IVUS used to assess extent of in-stent disease. Noted to have moderate disease distal to prior stents, moderate in-stent disease in distal aspects of stent and moderate to severe disease at takeoff of small second diagonal and proximal aspect of prior stents. Moderate ostial LAD disease (50%). ACIST FFR catheter placed across most proximal in-stent lesion to mid LAD FFR 0.74 In-stent lesions predilated with 2.0 compliant balloon Proximal and distal in-stent lesions dilated with 2.75 NC balloon to high atmospheres IC vasodilators administered for spasm Repeat IVUS showed minimal residual in-stent stenosis with no apparent edge complications. Post procedure YOSI 3 flow, stent well expanded with minimal residual stenosis and no apparent cardiac complications. Arterial Closure: TR band Summary: 1. Successful PCTA of mid LAD in-stent restenosis (FFR 0.74) with 2.75 NC balloon Recommendations: To PCU for continued monitoring Continue dual-antiplatelet therapy indefinitely Continue statin, and ASCVD risk factor modification Consult cardiac Rehab Hemodynamics Rest Ao:: 102/44/68 Final Ao: 184/66/112 LV: 113/8 Recommendations Recommendations: PCI without planned CABG Specimens Specimens: None Radiation Exposure (mGy) 3351 Contrast (mls) 50 Fluids (cc crystalloids) Fluids (cc crystalloids): 100 Drains Drains: None Anesthesia Moderate Procedural Complication(s) None Disposition ICU I attest to the content of the Intraoperative Record and any orders documented therein. Any exceptions are noted below. [facility] Card Cath Procedure Codes Cardiac Catheterization Procedure 1: Cardiovascular Cath Procedures: 27979 Left Heart Cath (+/-LV) Procedure 2: Cardiovascular Cath Procedures: 84258 (Doppler) Pressure Wire Therapeutic Services & Ancillary Proc Procedure 1: Cardiovascular Tx and Anc Procedures: 48055 IV Ultrasound (Coronary or Graft) Angioplasty Procedure 1: Cardiovascular Angioplasty Procedures: 97996 PTCA; Single mafor coronary artery or branch RC LC LD PG Care Time/CCT Total # of Minutes Spent Total Time Spent with Patient: Total time spent is greater than 50% in coordination of care (as documented) at patient's floor/unit and/or counseling patient:
[2019-07-16] MEDS ORDERED: SODIUM CHLORIDE 0.9% 1000ML 1,000 ML IV SCH (12:45)
[2019-07-16] MEDS: INSULIN GLARGINE SOLOSTAR 100 UNITS/ML 3 ML PEN SQ SCH (17:53)
--- NOTE | 2019-07-16 19:43 | Hospitalist Progress Note ---
Date of Service July 16, 2019 Assessment & Plan (1) Acute ST elevation myocardial infarction (STEMI): History of ischemic heart disease. Presented to ED with intermittent chest pain for a few days and prolonged chest pain the day of admission. EKG demonstrated inferior STEMI. Troponin I 0.097. Heart alert called and taken to dairy lab technician emergently. Cath demonstrated 90% ostial RCA 100% distal RCA 70% mid LAD 90% non-dominate circ. PCI with plain old balloon angioplasty to mid and distal RCA and drug-eluting stent to the ostium of the RCA performed. Echo showed hyperdynamic LV without wall motion abnormalities. Troponin I peaked @ 5.91. Returned to dairy lab technician for angioplasty of LAD lesion with good results. Continue aspirin, clopidogrel, metoprolol, losartan, statin. Further management per Cardiology. (2) CAD (coronary artery disease): As noted above. (3) HTN (hypertension): Continue metoprolol and losartan. (4) GERD (gastroesophageal reflux disease): Continue PPI. (5) Renal insufficiency: Baseline creatinine unknown. Creatinine at time of admission was 1.44. Received dye load x 2 with CTA + cardiac cath. Creatinine today = 1.61. Follow. (6) Diabetes mellitus, type II: DM type 2, managed with Lantus and NovoLog at home. Hgb A1C 9.3. Lantus / Novolog per protocol. FBS today = 143. Seen by simulation educator. (7) Dyslipidemia: LDL-c = 182 on rosulvastatin 5 mg daily. Increased rosuvastatin to 40 mg daily. (8) MS (multiple sclerosis): Neuro status stable. (9) DVT prophylaxis: SQ enoxaparin. Ambulate. (10) Discharge planning issues: Anticipated discharge to home. Primary care follow-[facility] [place]. Subjective Recheck for STEMI and other problems. Patient seen in their room around 1900. visiting. Returned to dairy lab technician today for angioplasty of LAD lesion. Procedure went well. No further chest pain. No SOB. Nausea resolved. Review of Systems: Constitutional- no fever. Cardiac- as noted above. Pulmonary- no cough or SOB. GI- no nausea or vomiting, diarrhea, melena, hematochezia. - voiding without difficulty. Otherwise, as noted above. Physical Exam Constitutional: no acute distress Eyes: + anicteric sclerae Respiratory: no respiratory distress Auscultation: lungs clear to auscultation bilaterally Cardiovascular: Rate/Rhythm: regular rate and regular rhythm Heart Sounds: + murmur (II/ sys murmur at base); no gallop and no cardiac rub Vessels: no JVD Extremities: no calf tenderness and no edema Gastrointestinal (Abdomen): normal bowel sounds, soft, nontender, no hepatosplenomegaly Musculoskeletal: Extremities: no cyanosis Skin: no rashes, warm and dry Psychiatric: Orientation: alert and oriented x 3 Results & Data Vital Signs (Past 12 Hours) Vital Signs Temp Pulse Pulse Resp BP Pulse Ox 07/16/19 19:08 36.7 C 72 20 111/62 96 07/16/19 16:00 36.8 C 64 18 145/82 H 96 07/16/19 15:00 37 C 58 L 18 128/78 96 07/16/19 14:30 37 C 64 18 155/73 H 96 07/16/19 14:00 36.8 C 56 L 18 118/67 96 07/16/19 13:45 36.8 C 58 L 18 117/68 97 07/16/19 13:30 36.8 C 58 L 16 155/74 H 95 07/16/19 13:15 37 C 57 L 16 164/72 H 96 07/16/19 12:30 53 L 18 165/64 H 95 07/16/19 12:25 56 L 18 183/69 H 95 07/16/19 12:20 57 L 18 173/76 H 97 07/16/19 12:15 55 L 18 189/73 H 96 Laboratory Results 07/15/19 07:01 07/16/19 07:24 (1) Acute ST elevation myocardial infarction (STEMI) Involved coronary artery: unspecified coronary artery Qualified Code(s): I21 .3 - ST elevation (STEMI) myocardial infarction of unspecified site
[2019-07-16] MEDS: ENOXAPARIN INJ 40 MG/0.4 ML SYR SQ SCH (20:28)
[2019-07-17] MEDS: LEVOTHYROXINE SODIUM 175 MCG TABLET PO SCH (05:58)
[2019-07-17] MEDS: INSULIN ASPART 100 UNITS/ML 3 ML PEN SC SCH ×2 (08:33→12:01)
[2019-07-17] MEDS: LOSARTAN POTASSIUM 50 MG TAB PO SCH (08:35)
[2019-07-17] MEDS: ROSUVASTATIN CALCIUM 20 MG TAB PO SCH (08:35)
[2019-07-17] MEDS: INSULIN GLARGINE SOLOSTAR 100 UNITS/ML 3 ML PEN SQ SCH (08:36)
[2019-07-17] MEDS: ASPIRIN 325 MG ECTAB PO SCH (08:36)
[2019-07-17] MEDS: METOPROLOL TARTRATE 25 MG TAB PO SCH (08:36)
[2019-07-17] MEDS: CLOPIDOGREL BISULFATE 75 MG TAB PO SCH (08:36)
--- NOTE | 2019-07-17 08:59 | Pharmacy Report ---
Pharmacy Glycemic Short Note 2 - Date of Service July 17, 2019 - Glycemic Short BSG Results (Last 24 hours): 07/16/19 07/16/19 07/16/19 07:45 12:55 16:24 POC Glucose 143 H 118 H 103 H 07/16/19 07/17/19 20:24 07:21 POC Glucose 105 H 111 H OUTPATIENT ANTIDIABETIC REGIMEN: * Lantus 50 units SQ qAM * Humalog 1:4 plus sliding scale (< 180: no extra, 180-199: + 2 units, 200-249: +4 units, 250-299: + 6 units, etc.) * A1c= 9.3% (07/14/19) ASSESSMENT: * Pt is a 78yo F type II diabetic s/p catheterization laboratory technician intervention for STEMI. PMHx consistent with CAD, GERD, HTN, HLD, MS. * Patient received 46 units of insulin yesterday (of note, she was NPO for at least half of the day) * 35 units of basal insulin * 11 units of prandial/correctional insulin * BSGs ranging 103 - 148 over the past 24hrs * Risk factors for insulin resistance are relatively constant with the exception of dietary changes * Anticipating minimal change to insulin regimen for the next 24hrs d/t : * AM Fasting BSG = 111. Pt received partial dose yesterday for NPO status - will resume full dose today. * Post-prandial BSGs were below goal yesterday. I attribute this to NPO status and expect increase in values today. PLAN FOR INPATIENT GLYCEMIC CONTROL: * Basal insulin * Lantus 50 units SQ qAM * Bolus insulin * NovoLog per scale ACHS or Q6hrs while NPO * Goal Range: Low 110 mg/dL - High 140 mg/dL * Correction Factor: 20 mg/dL/unit * Nutritional / Prandial insulin per carb ratio of 1 unit per 6 grams CHO consumed PLAN FOR DISCHARGE: * A1c = 9.3% * Goal A1c <8% * Continue to adjust insulin doses per direction of outpatient provider to achieve goal BSG * Patient noted concern for overnight lows when discussed with the CDE - consider reducing Lantus to 43 units SQ qAM (although patient has tolerated full dose of 50 units this admission without evidence of hypoglycemia)
[2019-07-17] MEDS: PANTOprazole 40 MG TAB PO SCH (09:29)
--- NOTE | 2019-07-17 12:20 | Hospitalist Progress Note ---
Date of Service July 17, 2019 Assessment & Plan (1) Acute ST elevation myocardial infarction (STEMI): History of ischemic heart disease, s/p multiple PCI's. Presented to ED with intermittent chest pain for a few days and prolonged chest pain the day of admission. EKG demonstrated inferior STEMI. Troponin I 0.097. Heart alert called and taken to maintenance shop laborer emergently. Cath demonstrated 90% ostial RCA 100% distal RCA 70% mid LAD 90% non-dominate circ. PCI with plain old balloon angioplasty to mid and distal RCA and drug-eluting stent to the ostium of the RCA performed. Echo showed hyperdynamic LV without wall motion abnormalities. Troponin I peaked @ 5.91. Returned to maintenance shop laborer 07/16/19 for angioplasty of LAD lesion with good results. Continue aspirin, clopidogrel, metoprolol, losartan, statin. Further management per Cardiology. Patient to ask for referrals for cardiac rehab + Cardiology f/u. (2) CAD (coronary artery disease): As noted above. (3) HTN (hypertension): Continue metoprolol and losartan. (4) GERD (gastroesophageal reflux disease): Continue PPI (changed from omeprazole to pantoprazole because of possible drug interaction). (5) Renal insufficiency: Baseline creatinine unknown. Creatinine at time of admission was 1.44. Received dye load x 2 with CTA + cardiac cath. Creatinine 07/16 = 1.61. Follow. (6) Diabetes mellitus, type II: DM type 2, managed with Lantus and NovoLog at home. Hgb A1C 9.3. Lantus / Novolog per protocol. FBS today = 111. Seen by prosthodontist/educator. Ongoing management per PCP. (7) Dyslipidemia: LDL-c = 182 on rosulvastatin 5 mg daily. Increased rosuvastatin to 40 mg daily. (8) MS (multiple sclerosis): Neuro status stable. (9) DVT prophylaxis: SQ enoxaparin. Ambulate. (10) Discharge planning issues: Discharge to home. Primary care follow-up with Dr. Regan Hough with [facility] in [place]. Patient to ask for referrals for cardiac rehab + Cardiology f/u. Subjective Recheck for STEMI and other problems. Patient seen in their room around 1100. Feels well. No further chest pain. No SOB. Nausea resolved. Review of Systems: Constitutional- no fever. Cardiac- as noted above. Pulmonary- no cough or SOB. GI- no nausea or vomiting, diarrhea, melena, hematochezia. - voiding without difficulty. Otherwise, as noted above. Physical Exam Constitutional: no acute distress Eyes: + anicteric sclerae Respiratory: no respiratory distress Auscultation: lungs clear to auscultation bilaterally Cardiovascular: Rate/Rhythm: regular rate and regular rhythm Heart Sounds: + murmur (II/ sys murmur at base); no gallop and no cardiac rub Vessels: no JVD Extremities: no calf tenderness and no edema Gastrointestinal (Abdomen): normal bowel sounds, soft, nontender, no hepatosplenomegaly Musculoskeletal: Extremities: no cyanosis Skin: no rashes, warm and dry Psychiatric: Orientation: alert and oriented x 3 Results & Data Vital Signs (Past 12 Hours) Vital Signs Temp Pulse Pulse Resp BP Pulse Ox 07/17/19 12:00 36.8 C 69 18 137/71 95 07/17/19 08:00 37.0 C 72 76 16 132/69 96 07/17/19 03:46 37.0 C 71 18 122/58 L 96 Laboratory Results Laboratory Results - last 24 hr 07/16/19 07/16/19 07/16/19 11:19 11:42 16:24 Activ Coag Time Kaolin 224 H 241 H POC Glucose 103 H 07/16/19 07/17/19 07/17/19 20:24 07:21 11:21 Activ Coag Time Kaolin POC Glucose 105 H 111 H 164 H (1) Acute ST elevation myocardial infarction (STEMI) Involved coronary artery: unspecified coronary artery Qualified Code(s): I21.3 - ST elevation (STEMI) myocardial infarction of unspecified site
--- NOTE | 2019-07-17 13:55 | Cardiology Progress Note ---
Date of Service July 17, 2019 Assessment & Plan (1) Acute ST elevation myocardial infarction (STEMI): Patient presented with acute inferior ST segment elevation function infarction with cardiac catheterization demonstrating diffuse disease with a highly stented right coronary artery. Patient received plain old balloon angioplasty to the mid and distal right coronary artery and drug-eluting stent to the ostium of the right coronary artery. Residual disease was noted with diffusely diseased small left circumflex and a 70% mid LAD stenosis Echocardiogram this morning demonstrates normal to hyperdynamic LV function EF greater than 70% Patient currently asymptomatic Plan: Increase beta-hima therapy with an additional 25 mg metoprolol p.o. now and twice daily. Intensification of lipid-lowering therapy with rosuvastatin 40 mg/day Continue dual antiplatelet therapy Observe for clinical course regarding residual disease either future intervention versus stress testing warranted Patient yesterday with persistent pain day prior was referred and underwent balloon angioplasty of mid LAD lesion with good result Patient wishes to be discharged appropriately. Will follow with primary pelletizer. Copies of echo images and cath images to be provided to the patient as well as chart (2) History of coronary artery stent placement: Drug-eluting stent to the ostial right coronary artery Past history of multiple stents right coronary artery Received on balloon angioplasty of the distal right coronary this admission 07/14/2019 Balloon angioplasty of the mid left anterior descending on 07/16/2019 (3) HTN (hypertension): Beta-hima increased (4) CAD (coronary artery disease): (5) Dyslipidemia: Rosuvastatin increased (6) Atherosclerotic ulcer of aorta: CT scan to exclude dissection demonstrated an ulcerated plaque within the lateral arch of the aorta Management as above treatment of hypertension and lipids Radial approach appropriate for any future coronary prevention Subjective Patient seen and examined, chart, medications, telemetry reviewed. No further chest pains or discomfort feels improved this morning. Mild tenderness at the right wrist but otherwise ambulatory without complaint. Physical Exam Constitutional: WD/WN, vitals as above not in distress Eyes: PERRL ENMT: external ear and nose normal, oropharynx normal Neck: trachea midline, no thyromegaly Respiratory: normal respiratory effort, lungs clear to auscultation Cardiovascular: Rate/Rhythm: regular rate and regular rhythm Heart Sounds: normal S1 and normal S2; no gallop and no murmur Palpation: normal PMI Vessels: normal carotid upstroke and radial pulses present (Radial access site with small hematoma, no bruit); no JVD and no carotid bruit Extremities: no edema Gastrointestinal (Abdomen): normal bowel sounds, soft, nontender, no hepatosplenomegaly Musculoskeletal: no cyanosis or clubbing, extremities motor strength 5/5 Skin: no rashes, warm and dry Neurologic: PERRL, EOMI, accommodation nl, no face palsy, no dysarthria Psychiatric: A+Ox3, euthymic affect Results & Data Vital Signs (Past 12 Hours) Vital Signs Temp Pulse Pulse Pulse Resp BP Pulse Ox 07/17/19 12:44 36.8 C 53 L 69 18 137/71 95 07/17/19 12:00 36.8 C 69 18 137/71 95 07/17/19 08:00 37.0 C 72 76 16 132/69 96 07/17/19 03:46 37.0 C 71 18 122/58 L 96 Laboratory Results Laboratory Results - last 24 hr 07/16/19 07/16/19 07/16/19 11:19 11:42 16:24 Activ Coag Time Kaolin 224 H 241 H POC Glucose 103 H 07/16/19 07/17/19 07/17/19 20:24 07:21 11:21 Activ Coag Time Kaolin POC Glucose 105 H 111 H 164 H (1) Acute ST elevation myocardial infarction (STEMI) Involved coronary artery: unspecified coronary artery Qualified Code(s): I21.3 - ST elevation (STEMI) myocardial infarction of unspecified site
--- NOTE | 2019-07-17 13:57 | Discharge Summary ---
Date of Service Date of Admission: 07/13/19 Date of Discharge: 07/17/19 Admission HPI Per Admitting Provider This is a 78-year-old female with a PMH of coronary artery disease, HTN, HLD, GERD, history of Chavez's esophagus and stable MS who presented to ED this morning with chest pain. Patient is visiting [place] but resides in [place], [place]. Upon arrival to ED, a heart alert was called and the patient was taken to the [employer] Shift. A drug-eluting stent was placed to ostial LAD and patient was transferred to the ICU for further management. Post catheterization, patient is feeling nauseated and had 1 bout of emesis. History primarily obtained from family at bedside. Patient follows with Dr. Hough of [facility] as well as refining machine operator Dr. Best. Has history of a cardiac catheterization in the past but family does not know any more information about it. Records have been requested. Takes Plavix every day but does not take aspirin due to history of Chavez's esophagus. Family history of CAD in patient's mom. Endorses nausea and vomiting. No chest pain or SOB. Unable to obtain full ROS due to somnolence post-procedure. Principal Diagnosis inferior ST elevation myocardial infarction multivessel coronary artery disease Discharge Data Allergies Allergy/AdvReac Type Severity Reaction Status Date / Time Penicillins Allergy Hives Unverified 07/13/19 13:08 codeine AdvReac Gastrointestinal Unverified 07/13/19 13:08 Upset prednisone AdvReac Unknown Unverified 07/13/19 13:08 Consultations 07/13/19 14:26 Consult Fire Prevention Captain Routine 07/13/19 15:48 Consult Cardiology Routine Procedures Performed Operation Date: 07/13/19 12:45 Actual Procedures s Cineradiography w/Routine Exam - Codie tidwell Aspiration/PCI w/ELLE for Stemi - Codie tidwell Cath, Coronaries ONLY (no LV) - Codie Barton Operation Date: 07/16/19 09:30 Actual Procedures s Cineradiography w/Routine Exam - Kavon Silver MD s IVUS Coronary Single Vessel - Kavon Silver MD s Fraction Flow Morgan SGL Ves - Kavon Silver MD p POBA SGL Vessel - Kavon Silver MD Ordered Studies 07/13/19 12:35 CT angio chest dissec wo/w con Stat 07/13/19 12:41 CL Cath Imgs for PACS use only Stat 07/16/19 10:38 CL Cath Imgs for PACS use only Routine Hospital Course (1) Acute ST elevation myocardial infarction (STEMI): History of ischemic heart disease, s/p multiple PCI's. Presented to ED with intermittent chest pain for a few days and prolonged chest pain the day of admission. EKG demonstrated inferior STEMI. Troponin I 0.097. Heart alert called and taken to pathology laboratory aides teacher emergently. Cath demonstrated 90% ostial RCA 100% distal RCA 70% mid LAD 90% non-dominate circ. PCI with plain old balloon angioplasty to mid and distal RCA and drug-eluting stent to the ostium of the RCA performed. Echo showed hyperdynamic LV without wall motion abnormalities. Troponin I peaked @ 5.91. Returned to pathology laboratory aides teacher 07/16/19 for angioplasty of in-stent LAD lesion with good results. Continue aspirin, clopidogrel, metoprolol, losartan, statin. Further management per Cardiology. Patient to ask for referrals for cardiac rehab + Cardiology f/u. (2) HTN (hypertension): Continue metoprolol and losartan. (3) CAD (coronary artery disease): As noted above. (4) Atherosclerotic ulcer of aorta: Extensive atheromatous disease of thoracic aorta noted on CT of chest. (5) GERD (gastroesophageal reflux disease): Continue PPI (changed from omeprazole to pantoprazole because of possible drug interaction). (6) Renal insufficiency: Baseline creatinine unknown. Creatinine at time of admission was 1.44. Received dye load x 2 with CTA + cardiac cath. Creatinine 07/16 = 1.61. Follow. (7) Diabetes mellitus, type II: DM type 2, managed with Lantus and NovoLog at home. Hgb A1C 9.3. Lantus / Novolog per protocol. FBS today = 111. Seen by community nutrition educator. Ongoing management per PCP. (8) Dyslipidemia: LDL-c = 182 on rosulvastatin 5 mg daily. Increased rosuvastatin to 40 mg daily. (9) MS (multiple sclerosis): Neuro status stable. (10) DVT prophylaxis: SQ enoxaparin. Ambulate. (11) Discharge planning issues: Discharge to home. Primary care follow-up with Dr. Regan Hough with [facility] in [place]. Patient to ask for referrals for cardiac rehab + Cardiology f/u. Total Time Total Time Spent Total Time Spent (In Minutes): 45 Discharge Plan Discharge Items Patient Disposition: Home - Self-Care Reason For Visit: chest pain Discharge Diagnosis: myocardial infarction (heart attack) Condition on Discharge: Good Activity: As commented below Activity Comment: gradually increase activity as tolerated Non-emergency contact: Primary Care Provider, Hospitalist and Paint Coating Machine Operator Call non-emergency contact if: you have any medication questions and your symptoms worsen Diet: Carb Consistent or DM2 and Heart Healthy Addtl Attending Provider Instructions: MEDICATION CHANGES: Increase metoprolol tartrate (Lopressor) to 25 mg twice a day. Increase rosuvastatin (Crestor) to 40 mg daily for high cholesterol. Start aspirin (Ecotrin) 81 mg daily. Take with clopidogrel (Plavix). Do not discontinue unless instructed to do so. Stop omeprazole (Prilosec). It may interact with clopidogrel (Plavix). Start pantoprazole (Protonix) 40 mg daily for acid reflux. SUMMARY OF TEST RESULTS: Heart catheterization showed multiple blockages in coronary arteries. CT scan of chest did not show any blood clots in lungs. Echocardiogram showed that your heart muscle is good and strong. LDL cholesterol was 182. Hemoglobin A1C was 9.3. RECOMMENDATIONS FOR FOLLOW-UP: Please see Dr. Hough for recheck within 1 week. Please ask for referral to get established with a Paint Coating Machine Operator. Please discuss management of your diabetes with him. OTHER INSTRUCTIONS: Seek medical attention if you have: * temperature above 101 * chest pain or trouble breathing * abdominal pain, nausea, vomiting * diarrhea, dark stools or bloody stools * any unanswered questions or concerns Call 911 if symptoms are severe. Please take good care of yourself. Call if you have any questions or problems. You can reach a [facility] hospitalist on duty at [facility] 24 hours a day by calling [phone]. My cell # is [phone]. Pending Studies at Discharge: No Stand-Alone Forms: Call Back Authorization, [facility], Smoking Cessation Medications and DC Order Prescriptions: New metoprolol tartrate 25 mg tablet 25 mg PO BID Qty: 60 RF: 1 rosuvastatin 40 mg tablet 40 mg PO DAILY Qty: 30 RF: 1 pantoprazole 40 mg tablet,delayed release (DR/EC) 40 mg PO DAILY Qty: 30 RF: 1 aspirin [Ecotrin Low Strength] 81 mg tablet,delayed release (DR/EC) 81 mg PO DAILY Qty: 30 RF: 0 Continued losartan 50 mg Tablet 50 mg PO DAILY RF: 0 levothyroxine 175 mcg Tablet 175 mcg PO DAILY RF: 0 clopidogrel 75 mg Tablet 75 mg PO DAILY RF: 0 insulin lispro [Humalog KwikPen Insulin] 100 unit/mL Insulin Pen 1 unit SUBCUT TIDM RF: 0 Lantus Solostar U-100 Insulin 100 unit/mL (3 mL) Insulin Pen 50 unit SUBCUT QAM RF: 0 Discontinued omeprazole 20 mg Capsule,Delayed Release(Dr/Ec) 20 mg PO DAILY RF: 0 rosuvastatin 5 mg Tablet 5 mg PO DAILY RF: 0 metoprolol tartrate 25 mg Tablet 25 mg PO DAILY RF: 0 Discharge Orders: Discharge Order (Routine); Ordered 07/17/19 Ordered By: Elias Christensen Admission Data Admit Date/Time: 07/13/19 14:25 Attending Provider: Elias Christensen Admit Provider: Elias Christensen Primary Care Provider: PCP,NO Other Providers: Sidney Perea ; Mert Urena Other Interventions: Discharge Summary Assessment (RN) Last Done: 07/17/19 12:44
== END 2019-07-17 14:39 | disposition home or self-care (01) | DRG 247 ==
LOC: ED 12:15 → CC 13:16 → 1E 14:25 → 2S 07-14 10:49
PROC: CLB.CCO (2019-07-13 12:45)